=== PATIENT | female | born 1995 | race Two or more races ===

== ENCOUNTER 2024-10-01 17:39 | Emergency (ER) | payer BC, SELFPAY ==
--- NOTE | 2024-10-01 17:47 | XR_ITS ---
Examination: CT abdomen and pelvis without contrast. Coronal 3-D reconstructions. Sagittal 2-D reconstructions. Date and time of exam:October 01, 2024 1801 hrs. Indications: Onset severe upper abdominal pain today CTDI: vol (mGy): 27.8 DLP: (mGycm): 1648 Technique: Axial images of the abdomen have been obtained, 3 mm slice thickness Intravenous contrast material has not been administered. Low dose protocols were performed. One or more of the following dose reduction techniques were used; automated exposure control, adjustment of the mA and/or KV according to patient size, use of iterative reconstruction technique. Findings: Liver is irregular in contour with fatty infiltration and there is moderate hepatomegaly Portacaval stent No definite gallstones No pancreatic mass Mild splenomegaly Severe right renal parenchymal scar formation, no hydronephrosis Aorta normal size Normal appendix No bowel obstruction No ascites Contracted urinary bladder No pelvic mass Impression: Cirrhosis Portacaval stent Mild splenomegaly Severe right renal parenchymal scar formation, no hydronephrosis Normal appendix No bowel obstruction Recommend hepatobiliary sonography follow-up
[2024-10-01 18:10] LABS: Basophils % (Auto) 1 % (0-2.5); Eosinophils # (Auto) 0.1 Thou/mm3 (0.0-0.5); Eosinophils % (Auto) 1 % (0-10); Hematocrit 37.2 % (36.0-46.0); Hemoglobin 12.5 g/dL (12.0-16.0); Immature Granulocytes % (Auto) 0 % (0-0); Immature Granulocytes Auto 0.01 Thou/mm3 (0.00-0.00); Lymphocytes # (Auto) 1.8 Thou/mm3 (1.0-4.8); Lymphocytes % (Auto) 21 % (10-50); Mean Corpuscular HGB Conc 33.6 g/dl (31.0-37.0); Mean Corpuscular Hemoglobin 28.8 pg (25.0-35.0); Mean Corpuscular Volume 86 fL (80-100); Monocytes # (Auto) 0.6 Thou/mm3 (0.0-0.8); Monocytes % (Auto) 6 % (0-12); Neutrophils # (Auto) 6.1 Thou/mm3 (1.8-7.7); Neutrophils % (Auto) 71 % (37-80); Nucleated Red Blood Cell % 0 /100 WBC (0); Platelet Count 134 Thou/mm3 (140-440); Red Blood Count 4.34 Miln/mm3 (4.00-5.20); White Blood Count 8.6 Thou/mm3 (3.6-11.0)
[2024-10-01 18:22] VITALS: BP 151/80; PULSE 87; RESP 18; TEMP 36.9; O2SAT 99
[2024-10-01 18:23] LABS: Alanine Aminotransferase 34 U/L (10-49); Albumin, Serum 3.9 gm/dL (3.5-5.0); Albumin/Globulin Ratio 1.4 (1.2-2.2); Alkaline Phosphatase 119 U/L (46-116); Amylase 41 U/L (30-118); Anion Gap 5 (7-16); Aspartate Amino Transferase 64 U/L (0-34); BUN/Creatinine Ratio 16 Ratio (12-20); Bilirubin,Total 1.1 mg/dL (0.3-1.2); Blood Urea Nitrogen 14 mg/dL (9-23); Calcium 9.4 mg/dL (8.3-10.6); Calcium (Corrected) 9.5 mg/dL (8.5-10.1); Carbon Dioxide 26.8 mMol/L (20.0-31.0); Chloride 109 mMol/L (98-107); Creatinine (Component) 0.9 mg/dL (0.6-1.3); Globulin 2.7 gm/dL (2.3-3.5); Glucose 123 mg/dL (74-106); Lipase 50 U/L (12-53); Magnesium 1.9 mg/dL (1.6-2.6); Osmolality,Calculated 282 (275-295); Potassium 4.1 mMol/L (3.4-5.1); Sodium 141 mMol/L (136-145); Total Protein 6.6 gm/dL (5.7-8.2); eGFR > 60 See Note
--- NOTE | 2024-10-01 19:50 | EDNOTE_ITS ---
ED Abdominal Pain RME/HPI General Chief Complaint: Abdominal Pain Stated complaint: UPPER ABD PAIN Time seen by provider: 10/01/24 17:45 Arrival date/time: 10/01/24 17:39 RME / HPI RME / HPI narrative: This section includes all my notes and documentations, including HPI, PE, and ED course. Hoang Chaney MD HPI: 29-year-old female here with a couple hour history of epigastric abdominal pain. Currently, much better. Had nausea at the start. No vomiting. No fever or chills. No urinary symptoms. No other complaints. ROS: Gastrointestinal: negative except as documented in HPI. Genitourinary: negative except as documented in HPI. Musculoskeletal: negative except as documented in HPI. Skin: negative except as documented in HPI. Neurological: negative except as documented in HPI. Physical Exam: General: Alert and oriented. No acute distress. Eyes: Conjunctivae and lids clear. Lungs: No respiratory distress. Abdomen: Soft and nontender. Normal bowel sounds. No distension. No rebound or guarding. Back: No CVA tenderness. Skin: Warm and dry. Neuro: Alert and oriented X 3. I reviewed all diagnostic test results. My review of the abdominal CT report is no acute findings. Blood tests unremarkable. At this point, diagnoses include GERD. Recommended conservative treatment and more outpatient workup. Based on my best medical judgment, made decision no further evaluation or treat ment indicated at this time. Patient understands and agrees to the discharge instructions customized and printed, see below. Discharge instructions from Dr. Chaney: 1. After extensive evaluation, there is no emergency such as appendicitis needing urgent surgery. 2. Your brief upper abdominal pain is possibly due to GERD, see attached handout. On top of your omeprazole, take famotidine 40 mg 2X daily as needed. 3. See a private doctor on 10/03/2024 for recheck and further care. Ask to review all test results and official radiology reports, to make sure you receive all necessary follow-ups and monitoring. To make sure there is no serious intra-abdominal condition, ask for help with more investigation not available here in the ER. Such as EGD or scoping the stomach, colonoscopy or scoping the colon, and referral to see video clerk. 4. Seek immediate medical care with worsening or with any concerns. Hoang Chaney MD Related Data Allergies Allergy/AdvReac Type Severity Reaction Status Date / Time acetaminophen Allergy Swelling Verified 10/01/24 17:42 of Lip/Tongue/Throat ibuprofen Allergy Swelling Verified 10/01/24 17:42 of Lip/Tongue/Throat Penicillins Allergy Swelling Verified 10/01/24 17:42 of Lip/Tongue/Throat Course Quality Measures none Orders Category Date Time Status CT abdomen pelvis wo con Stat Exams 10/01/24 17:47 Completed Amylase Stat Lab 10/01/24 17:55 Completed CBC Stat Lab 10/01/24 17:55 Completed CMP [Comprehensive Metabolic Panel] Stat Lab 10/01/24 17:55 Completed Lipase Stat Lab 10/01/24 17:55 Completed Magnesium Stat Lab 10/01/24 17:55 Completed Vital Signs Vital signs: Vital Signs Temperature 98.5 F 10/01/24 18:22 Pulse Rate 87 10/01/24 18:22 Respiratory Rate 18 10/01/24 18:22 Blood Pressure 151/80 H 10/01/24 18:22 Pulse Oximetry (%) 99 10/01/24 18:22 Oxygen Delivery Method Room Air 10/01/24 18:22 Abdominal Pain MDM Patient data External records reviewed:: [facility] previous records Clinical information provided by:: patient Social determinants that could affect healthcare access:: none Patient has the following chronic illnesses:: Multiple abdominal surgeries How is presenting disease/condition affected by chronic disease/condition?: uneffected by Evaluation data The following diagnostics were reviewed and interpreted by me:: lab results and radiology exam(s) Lab and/or radiology exams considered but not ordered:: None Interpretation Summary: GERD Medications / Prescriptions Medications or Prescriptions considered but not ordered:: None Medication administrations:: None Consultations Consultation(s) initiated? (list below): No Diagnosis Differential diagnosis abdominal pain: abdominal pain, acute appendicitis, calculus of kidney, constipation, diverticulitis, gastroenteritis, pancreatitis and small bowel obstruction Most likely diagnosis given after review of the tests above:: GERD Admission Indicated Admission indicated?: not indicated Explain why admission is indicated or not indicated:: No criteria for admission Admission Request Was there a request for admission?: No Disposition Plan Disposition Plan: Discharge Discharge Attestation Discharge Attestation: The patient and all family members were given an opportunity to ask questions and understood the discharge instructions. Discharge instructions specifically effects, indications for sooner follow up or return to the emergency department, and the expected course of current diagnosis. Patient condition: Stable Discharge Plan Plan Patient Disposition: HOME (Self Care) Prescriptions/Referrals Referrals: Sarah Arias MD [Primary Care Provider] - In 1 week Problem List Clinical Impression: Abdominal pain Patient/Caregiver Discharge Instructions Discharge Activity: activity as tolerated Education Materials: ED Abdominal Pain Unkn Cause Fem, ED GERD (Adult) Additional Instructions: Discharge instructions from Dr. Chaney: 1. After extensive evaluation, there is no emergency such as appendicitis needing urgent surgery. 2. Your brief upper abdominal pain is possibly due to GERD, see attached handout. On top of your omeprazole, take famotidine 40 mg 2X daily as needed. 3. See a private doctor on 10/03/2024 for recheck and further care. Ask to review all test results and official radiology reports, to make sure you receive all necessary follow-ups and monitoring. To make sure there is no serious intra-abdominal condition, ask for help with more investigation not available here in the ER. Such as EGD or scoping the stomach, colonoscopy or scoping the colon, and referral to see video clerk. 4. Seek immediate medical care with worsening or with any concerns. Print Language: [place] Stand Alone Forms: [employer] Award Info., Patient Portal Info Letter
[2024-10-01 19:58] VITALS: BP 136/74; PULSE 78; RESP 18; TEMP 37.1; O2SAT 99
== END 2024-10-01 19:58 | disposition home or self-care (01) ==
PROVIDERS: Emergency Provider Emergency Medicine; PCP Family Medicine
DX: K21.9 Gastro-esophageal reflux disease without esophagitis (principal)
CPT/HCPCS: 36415; 74176; 80053; 82150; 83690; 83735; 85025; 99284

== ENCOUNTER 2025-03-20 21:17 | Emergency (ER) | payer BC, SELFPAY ==
[2025-03-20 21:17] VITALS: BMI 61.8
[2025-03-20 21:41] VITALS: BP 135/69; PULSE 73; RESP 17; TEMP 36.8; O2SAT 98
--- NOTE | 2025-03-20 21:43 | PD.EDABDPN ---
ED Abdominal Pain RME/HPI General Chief Complaint: Abdominal Pain Stated complaint: UPPER ABDOMINAL PAIN Time seen by provider: 03/20/25 21:43 Arrival date/time: 03/20/25 21:17 RME / HPI RME / HPI narrative: This section includes all my notes and documentations, including HPI, PE, and ED course. Hoang Chaney MD HPI: 30 y/o female with SHx of Gastric Bypass presents to ED c/o epigastric pain, nausea, and vomiting x 6 hours. No other complaints. ROS: All negative except as documented in HPI. Physical Exam: General: Alert and oriented. No acute distress when remaining still. Eyes: Conjunctivae and lids clear. ENT: No nasal congestion. Neck: Supple. Heart: RRR. Lungs: No respiratory distress. Good air movement. No rhonchi, wheezing, rales. Abdomen: Soft with RUQ tenderness. Normal bowel sounds. No distension. No rebound or guarding. Back: No CVA tenderness. Skin: Warm and dry. Neuro: Alert and oriented X 3. I reviewed all diagnostic test results. My review of the Gall Bladder US report is Cholelithiasis, no definite cholecystitis. No common bile duct stones. Mild hepatomegaly. Blood tests remarkable for LFT elevation. At this point, diagnoses include gallstones. Treatment here included Pepcid, Zofran, Protonix. Significant improvement noted. Recommended more outpatient care. Based on my best medical judgment, made decision no further evaluation or treatment indicated at this time. Patient understands and agrees to the discharge instructions customized and printed, see below. Discharge Instructions from Dr. Chaney: 1. After evaluation, your symptoms are due to gallstone(s).? You need gallbladder to help digest fatty foods. 2. So to prevent future attacks, avoid all fatty and oily and greasy and buttery and dairy foods.? This usually means take out and fast food restaurants. 3. Zofran for nausea/vomiting.? Tylenol with codeine for severe pain.?? 4. See a private doctor on 01/19/2025 for recheck and further care. Ask to review all test results and official radiology reports, to make sure you receive all necessary follow-ups and monitoring. Ask for help seeing a general surgeon to discuss elective surgery. You may need more investigation, such as MRCP or HIDA scan. 5. Seek immediate medical care with intolerable pain, fever, or with any concerns. Hoang Chaney MD Related Data Previous Rx's ?Medication ?Instructions ?Recorded acetaminophen 300 mg-codeine 30 mg 2 tab PO Q8H PRN pain #20 tabs 03/20/25 tablet ondansetron 4 mg disintegrating 4 mg PO TID PRN nausea and 03/20/25 tablet vomiting 30 days #10 tabs Allergies Allergy/AdvReac Type Severity Reaction Status Date / Time acetaminophen Allergy Swelling Verified 10/01/24 17:42 of Lip/Tongue/Throat ibuprofen Allergy Swelling Verified 10/01/24 17:42 of Lip/Tongue/Throat Penicillins Allergy Swelling Verified 10/01/24 17:42 of Lip/Tongue/Throat Review of Systems Review of Systems Systems Reviewed: All systems reviewed, normal except as documented Past Medical History Surgical History SURGICAL: Positive Gastric Bypass Surgery Social History SMOKING STATUS: Never smoker ED Exam Narrative Physical exam: Refer to HPI above Course Quality Measures none Orders Category Date Time Status gall bladder Stat Exams 03/20/25 21:44 Completed Amylase Stat Lab 03/20/25 21:47 Completed Bilirubin,Direct Stat Lab 03/20/25 21:47 Completed CBC Stat Lab 03/20/25 21:47 Completed CMP [Comprehensive Metabolic Panel] Stat Lab 03/20/25 21:47 Completed Lipase Stat Lab 03/20/25 21:47 Completed Magnesium Stat Lab 03/20/25 21:47 Completed Famotidine [Pepcid] Med 03/20/25 21:43 Discontinued 40 mg PO X1 ONE Ondansetron Odt [Zofran Odt] Med 03/20/25 21:43 Discontinued 4 mg PO X1 ONE Pantoprazole [Protonix] Med 03/20/25 21:43 Discontinued 40 mg PO X1 ONE Vital Signs Vital signs: Vital Signs Temperature 98.2 F 03/20/25 21:41 Pulse Rate 73 03/20/25 21:41 Respiratory Rate 17 03/20/25 21:41 Blood Pressure 135/69 H 03/20/25 21:41 Pulse Oximetry (%) 98 03/20/25 21:41 Oxygen Delivery Method Room Air 03/20/25 21:41 Abdominal Pain MDM MDM Narrative MDM Narrative:: Scribe Attestation: I, Shira Nguyễn, am scribing for and in the presence of Dr. Chaeny. Provider Notation: Although this document has been carefully reviewed, there may still be some phonetic and other typographical errors.? These errors are purely grammatical due to imperfections in the software program and should not be construed in any way to? compromise the substance of the patient's medical care during this visit. 30 y/o female with SHx of Gastric Bypass presents to ED c/o epigastric pain, nausea, and vomiting x 6 hours. Patient data External records reviewed:: [facility] previous records Clinical information provided by:: patient Social determinants that could affect healthcare access:: none Patient has the following chronic illnesses:: None reported How is presenting disease/condition affected by chronic disease/condition?: no chronic disease Evaluation data The following diagnostics were reviewed and interpreted by me:: lab results and radiology exam(s) Lab and/or radiology exams considered but not ordered:: None Interpretation Summary: I reviewed all diagnostic test results. My review of the Gall Bladder US report is Cholelithiasis, no definite cholecystitis. No common bile duct stones. Mild hepatomegaly. Blood tests remarkable for LFT elevation. Medications / Prescriptions Medications or Prescriptions considered but not ordered:: None Medication administrations:: Medication Administration History Discontinued Medications Famotidine (Famotidine 20 Mg Tablet) 40 mg PO X1 ONE Stop: 03/20/25 21:44 Last Admin: 03/20/25 22:28 Dose: 40 mg Documented By: WILLARD Ondansetron HCl (Ondansetron Odt 4 Mg Tabrap) 4 mg PO X1 ONE; Protocol Stop: 03/20/25 21:44 Last Admin: 03/20/25 22:27 Dose: 4 mg Documented By: WILLARD Pantoprazole Sodium (Pantoprazole 40 Mg Tablet) 40 mg PO X1 ONE Stop: 03/20/25 21:44 Last Admin: 03/20/25 22:27 Dose: 40 mg Documented By: WILLARD Pepcid, Zofran, Protonix Consultations Consultation(s) initiated? (list below): No Diagnosis Differential diagnosis abdominal pain: abdominal pain, acute appendicitis, calculus of kidney, constipation, diverticulitis, gastroenteritis, pancreatitis, small bowel obstruction and other (Biliary colic) Most likely diagnosis given after review of the tests above:: Gallstones Admission Indicated Admission indicated?: not indicated Explain why admission is indicated or not indicated:: With significant improvement, there was no indication for admission. Admission Request Was there a request for admission?: No Disposition Plan Disposition Plan: Discharge Discharge Attestation Discharge Attestation: The patient and all family members were given an opportunity to ask questions and understood the discharge instructions. Discharge instructions specifically effects, indications for sooner follow up or return to the emergency department, and the expected course of current diagnosis. Patient condition: Stable Discharge Plan Plan Patient Disposition: HOME (Self Care) Prescriptions/Referrals Prescriptions/Med Rec: New acetaminophen-codeine 300-30 mg tablet 2 tab PO Q8H MDD 6 PRN (Reason: pain) Qty: 20 0RF ondansetron 4 mg tablet,disintegrating 4 mg PO TID PRN (Reason: nausea and vomiting) 30 Days Qty: 10 0RF Referrals: Sarah Arias MD [Primary Care Provider] - In 1 week Problem List Clinical Impression: Gallstones Patient/Caregiver Discharge Instructions Discharge Activity: activity as tolerated Education Materials: ED Gallstones with Biliary Colic Additional Instructions: Discharge Instructions from Dr. Chaney: 1. After evaluation, your symptoms are due to gallstone(s).? You need gallbladder to help digest fatty foods. 2. So to prevent future attacks, avoid all fatty and oily and greasy and buttery and dairy foods.? This usually means take out and fast food restaurants. 3. Zofran for nausea/vomiting.? Tylenol with codeine for severe pain.?? 4. See a private doctor on 01/19/2025 for recheck and further care. Ask to review all test results and official radiology reports, to make sure you receive all necessary follow-ups and monitoring. Ask for help seeing a general surgeon to discuss elective surgery. You may need more investigation, such as MRCP or HIDA scan. 5. Seek immediate medical care with intolerable pain, fever, or with any concerns. Print Language: Martiniquais Stand Alone Forms: [employer] Award Info., Patient Portal Info Letter
--- NOTE | 2025-03-20 21:44 | XR_ITS ---
Examination: Abdomen sonogram, Limited Date and time of exam: March 20, 2025 2155 hours INDICATIONS: Nausea and vomiting today Technique: Real-time nobles scale transabdominal sonographic images of the upper abdomen obtained. Findings: Cholelithiasis, gallbladder wall 0.35 cm without definite edema Common bile duct 0.4 cm no stones Pancreatic head 3.5 cm Liver 17 cm partial visualization shadowing which may represent a portacaval shunt Normal hepatopedal portal venous flow Patent IVC IMPRESSION: Cholelithiasis, no definite cholecystitis No common bile duct stones Mild hepatomegaly
[2025-03-20 22:03] LABS: Basophils % (Auto) 0 % (0-2.5); Eosinophils % (Auto) 0 % (0-10); Hematocrit 38.4 % (36.0-46.0); Hemoglobin 13.3 g/dL (12.0-16.0); Immature Granulocytes % (Auto) 0 % (0-0); Immature Granulocytes Auto 0.02 Thou/mm3 (0.00-0.00); Lymphocytes % (Auto) 11 % (10-50); Mean Corpuscular HGB Conc 34.6 g/dl (31.0-37.0); Mean Corpuscular Hemoglobin 30.8 pg (25.0-35.0); Mean Corpuscular Volume 89 fL (80-100); Monocytes # (Auto) 0.6 Thou/mm3 (0.0-0.8); Monocytes % (Auto) 6 % (0-12); Neutrophils # (Auto) 7.5 Thou/mm3 (1.8-7.7); Neutrophils % (Auto) 82 % (37-80); Nucleated Red Blood Cell % 0 /100 WBC (0); Platelet Count 167 Thou/mm3 (140-440); Red Blood Count 4.32 Miln/mm3 (4.00-5.20); White Blood Count 9.1 Thou/mm3 (3.6-11.0)
[2025-03-20 22:19] LABS: Alanine Aminotransferase 119 U/L (10-49); Albumin, Serum 3.9 gm/dL (3.5-5.0); Albumin/Globulin Ratio 1.2 (1.2-2.2); Alkaline Phosphatase 141 U/L (46-116); Amylase 58 U/L (30-118); Anion Gap 8 (7-16); Aspartate Amino Transferase 229 U/L (0-34); BUN/Creatinine Ratio 13 Ratio (12-20); Bilirubin,Direct 0.6 mg/dL (0.0-0.3); Bilirubin,Total 1.4 mg/dL (0.3-1.2); Blood Urea Nitrogen 13 mg/dL (9-23); Calcium 8.5 mg/dL (8.3-10.6); Calcium (Corrected) 8.6 mg/dL (8.5-10.1); Carbon Dioxide 27.5 mMol/L (20.0-31.0); Chloride 109 mMol/L (98-107); Globulin 3.2 gm/dL (2.3-3.5); Glucose 138 mg/dL (74-106); Lipase 53 U/L (12-53); Magnesium 1.9 mg/dL (1.6-2.6); Osmolality,Calculated 288 (275-295); Potassium 4.2 mMol/L (3.4-5.1); Sodium 144 mMol/L (136-145); Total Protein 7.1 gm/dL (5.7-8.2); eGFR > 60 See Note
[2025-03-20] MEDS: PANTOPRAZOLE 40 MG TABLET PO (22:27)
[2025-03-20] MEDS: ONDANSETRON ODT 4 MG TABRAP PO (22:27)
[2025-03-20] MEDS: FAMOTIDINE 20 MG TABLET 40 MG PO (22:28)
== END 2025-03-20 23:23 | disposition home or self-care (01) ==
PROVIDERS: Emergency Provider Emergency Medicine; PCP Family Medicine
DX: K80.20 Calculus of gallbladder without cholecystitis without obstruction (principal); R16.0 Hepatomegaly, not elsewhere classified; R79.89 Other specified abnormal findings of blood chemistry
CPT/HCPCS: 36415; 76705; 80053; 82150; 82248; 83690; 83735; 85025; 99284; Q0162; A9270

== ENCOUNTER 2025-10-05 15:16 | Inpatient (IN) | payer BC, SELFPAY ==
[2025-10-05 15:43] VITALS: BP 116/74; PULSE 109; RESP 24; TEMP 36.9; O2SAT 95
[2025-10-05 15:44] VITALS: PULSE 88
--- NOTE | 2025-10-05 15:44 | EKG_ITS ---
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
--- NOTE | 2025-10-05 15:44 | XR_ITS ---
EXAMINATION: AP chest single view TECHNIQUE: AP portable semiupright chest single view Date and time: October 05, 2025, 1732 hours, comparison February 22, 2008 INDICATION: Chest pain shortness of breath beginning 2 days ago. FINDINGS: Minimal prominence left ventricle No pneumonia or pulmonary edema Mild to moderate elevation right hemidiaphragm Intact osseous structures IMPRESSION: No pneumonia or pulmonary edema
--- NOTE | 2025-10-05 15:45 | PD.EDRME ---
Rapid Medical Screening Exam RME Arrival date/time: 10/05/25 15:16 30-year-old female reports he is a [employer] presents to the emergency department today for complaints of generalized weakness Chief Complaint: Dizziness Vital signs: Vital Signs Temperature 98.5 F 10/05/25 15:43 Pulse Rate 109 H 10/05/25 15:43 Respiratory Rate 24 H 10/05/25 15:43 Blood Pressure 116/74 10/05/25 15:43 Pulse Oximetry (%) 95 10/05/25 15:43 Oxygen Delivery Method Room Air 10/05/25 15:43 Vital signs reviewed by provider: Yes Exam: On exam patient has mild tachypnea and appears to be a bit pale blood pressure normal Clinical Impression: Labs, imaging, EKG obtained patient be seen in the main ER for further evaluation
[2025-10-05 16:20] LABS: Collection Type, Urine Clean Catch
[2025-10-05 16:30] LABS: Basophils # (Auto) 0.0 Thou/mm3 (0.0-0.2); Basophils % (Auto) 0 % (0-2.5); Eosinophils # (Auto) 0.0 Thou/mm3 (0.0-0.5); Eosinophils % (Auto) 0 % (0-10); Hematocrit 32.4 % (36.0-46.0); Hemoglobin 10.5 g/dL (12.0-16.0); Immature Granulocytes Auto 0.05 Thou/mm3 (0.00-0.00); Lymphocytes # (Auto) 0.3 Thou/mm3 (1.0-4.8); Lymphocytes % (Auto) 5 % (10-50); Mean Corpuscular HGB Conc 32.4 g/dl (31.0-37.0); Mean Corpuscular Hemoglobin 28.4 pg (25.0-35.0); Mean Corpuscular Volume 88 fL (80-100); Monocytes # (Auto) 0.0 Thou/mm3 (0.0-0.8); Monocytes % (Auto) 0 % (0-12); Neutrophils # (Auto) 5.2 Thou/mm3 (1.8-7.7); Neutrophils % (Auto) 94 % (37-80); Nucleated Red Blood Cell # 0.00 Thou/mm3 (0.00-0.00); Nucleated Red Blood Cell % 0 /100 WBC (0); Platelet Count 338 Thou/mm3 (140-440); RDW Standard Deviation 40.8 fL (36.4-46.3); Red Blood Count 3.70 Miln/mm3 (4.00-5.20); White Blood Count 5.6 Thou/mm3 (3.6-11.0)
[2025-10-05 16:35] LABS: HCG Qualitative,Urine Negative
[2025-10-05 16:43] VITALS: BP 107/62; PULSE 114; RESP 20; TEMP 38.1; O2SAT 98
[2025-10-05 16:48] LABS: B-Type Natriuretic Peptide 59 pg/mL (0-100)
[2025-10-05 16:49] LABS: Bacteria,Urine 4+; Bilirubin,Urine Negative (Negative); Blood,Urine 3+ (Negative); Clarity,Urine Turbid (Clear/Hazy); Color,Urine Yellow (Lt Yel-Yel); Glucose, Urine Negative (Negative); Hyaline Casts,Urine < 1 /hpf (0-1); Ketones,Urine Negative (Negative); Leukocyte Esterase,Urine Positive (Negative); Nitrite,Urine Positive (Negative); PH,Urine 5.5 (5.0-7.0); Protein,Urine 1+ (Neg - Trace); RBC,Urine 132 /hpf (0-3); Specific Gravity,Urine 1.023 (1.001-1.035); Squamous Epithelial Cell,Urine 8 /hpf (0-5); Urobilinogen,Urine 4.0 mg/dL (0.0-1.0); WBC,Urine 264 /hpf (0-5)
[2025-10-05 16:50] LABS: Culture Indicated,Urine Yes
[2025-10-05 16:51] LABS: INR 1.4 (0.9-1.3); Partial Thromboplastin Time 29.5 Seconds (22.0-36.0); Prothrombin Time 14.6 Seconds (9.0-12.2)
[2025-10-05 16:52] LABS: Alanine Aminotransferase 10 U/L (10-49); Albumin, Serum 3.3 gm/dL (3.5-5.0); Albumin/Globulin Ratio 0.8 (1.2-2.2); Alkaline Phosphatase 148 U/L (46-116); Anion Gap 13 (7-16); Aspartate Amino Transferase 17 U/L (0-34); BUN/Creatinine Ratio 12 Ratio (12-20); Bilirubin,Total 1.2 mg/dL (0.3-1.2); Blood Urea Nitrogen 13 mg/dL (9-23); Calcium 8.1 mg/dL (8.3-10.6); Calcium (Corrected) 8.7 mg/dL (8.5-10.1); Carbon Dioxide 20.7 mMol/L (20.0-31.0); Chloride 102 mMol/L (98-107); Creatinine (Component) 1.1 mg/dL (0.6-1.3); Globulin 4.0 gm/dL (2.3-3.5); Glucose 114 mg/dL (74-106); Magnesium 1.6 mg/dL (1.6-2.6); Osmolality,Calculated 273 (275-295); Potassium 3.3 mMol/L (3.4-5.1); Sodium 136 mMol/L (136-145); Total Protein 7.3 gm/dL (5.7-8.2); Troponin I < 0.002 ng/mL (0.0-0.045); eGFR > 60 See Note
[2025-10-05 17:17] LABS: Amphetamine/Methamp Scrn,U Negative (Negative); Barbiturate Screen,Urine Negative (Negative); Benzodiazepines Screen,Urine Negative (Negative); Benzoylecgonine Screen, Ur Negative (Negative); Fentanyl Screen,Urine Negative (Negative); Opiate Screen,Urine Negative (Negative); THC Screen,Urine Negative (Negative)
[2025-10-05 17:20] LABS: Lactate (Lactic Acid) 3.7 mMol/L (0.4-2.0)
[2025-10-05 17:50] LABS: Lipase 25 U/L (12-53); Procalcitonin 22.45 ng/ml (0.0-0.49)
[2025-10-05 18:00] VITALS: BP 118/78; PULSE 98; RESP 18; TEMP 37.7; O2SAT 98
--- NOTE | 2025-10-05 18:20 | XR_ITS ---
Examination: CT abdomen and pelvis without contrast. Coronal 3-D reconstructions. Sagittal 2-D reconstructions. Date and time of exam: October 05, 2025, 1859 hours, comparison October 01, 2024 INDICATIONS: Flank pain urinary tract infections, fever, generalized abdominal pain today CTDI: vol (mGy): 24.6 DLP: (mGycm): 1601 Technique: Axial images of the abdomen have been obtained, 3 mm slice thickness Intravenous contrast material has not been administered. Low dose protocols were performed. One or more of the following dose reduction techniques were used; automated exposure control, adjustment of the mA and/or KV according to patient size, use of iterative reconstruction technique. Findings: Cirrhosis, liver irregular in contour Portosystemic stent Hepatomegaly 20 cm A large tumor mass upper pole right kidney, 12.5 cm Severe scarring left kidney Nodular thickening right adrenal gland No pancreatic mass Mild splenomegaly Aorta normal size No bowel obstruction No pericecal inflammatory change No diverticulitis No uterine mass Contracted urinary bladder IMPRESSION: Large mass upper pole right kidney most consistent with tumor mass Recommend MRI abdomen pelvis follow-up pre and postcontrast
[2025-10-05] MEDS: RINGERS LACTATED 1000 ML 1,000 ML IV (18:34)
[2025-10-05] MEDS: ONDANSETRON INJ 2 MG/ML INJ 2 ML 4 MG IVP (18:35)
[2025-10-05] MEDS: MORPHINE SULF INJ 4 MG/ML VIAL IV (18:35)
[2025-10-05] MEDS: MethylPREDNISolone SOD SUCC 62.5 MG/ML 2ML VIAL 125 MG IVP (18:35)
[2025-10-05] MEDS: POTASSIUM CHLORIDE 10% 20 MEQ/15 ML UDC 40 MEQ PO (18:35)
--- NOTE | 2025-10-05 18:37 | EDNOTE_ITS ---
ED Fever RME/HPI General Chief Complaint: Dizziness Stated Complaint: DIZZY, DYSPNEA Time Seen by Provider: 10/05/25 18:09 Arrival date/time: 10/05/25 15:16 RME / HPI RME / HPI Narrative: 10/05/25 15:16 30-year-old female reports he is a Amish presents to the emergency department today for complaints of generalized weakness See MDM for Dr. Chaney's HPI Documentation. Exam: On exam patient has mild tachypnea and appears to be a bit pale blood pressure normal Impression: Labs, imaging, EKG obtained patient be seen in the main ER for further evaluation Related Data Home Medications ?Medication ?Instructions ?Recorded ?Confirmed albuterol 90 mcg/actuation aerosol 180 mcg inhalation BID PRN sob 10/06/25 10/06/25 inhaler apixaban 5 mg tablet (Eliquis) 5 mg PO BID DVT in port al vein 10/06/25 10/06/25 omeprazole 40 mg capsule,delayed 40 mg PO DAILY 10/06/25 release topiramate 50 mg tablet 50 mg PO BID appetite suppre arielle 10/06/25 10/06/25 Previous Rx's ?Medication ?Instructions ?Recorded acetaminophen 300 mg-codeine 30 mg 2 tab PO Q8H PRN pa in #20 tabs 03/20/25 tablet Allergies Allergy/AdvReac Type Severity Reaction Status Date / Time acetaminophen Allergy Swelling Verified 10/05/25 15:20 of Lip/Tongue/Throat ibuprofen Allergy Swelling Verified 10/05/25 15:20 of Lip/Tongue/Throat Penicillins Allergy Swelling Verified 10/05/25 15:20 of Lip/Tongue/Throat Review of Systems Review of Systems Systems Reviewed: All systems reviewed, normal except as documented Past Medical History Surgical History SURGICAL: Positive Gastric Bypass Surgery Physical Exam Narrative Physical exam: See MDM for Dr. Chaney's Physical Exam Documentation. ED Exam Narrative Physical exam: See MDM for Dr. Chaney's Physical Exam Documentation. Course Quality Measures none Orders Category Date Time Status Admit to Inpatient Status Routine Admission 10/05/25 21:52 Active Patient Condition Routine Admission 10/05/25 21:52 Ordered Nuclear Control Room Operator NOW Care 10/05/25 15:44 Active Cooling Measures NEEDED Care 10/05/25 22:05 Active EKG (ED ONLY) *Do not use* NOW Care 10/05/25 15:44 Completed MRI Screening NOW Care 10/05/25 22:02 Active MRI Screening NOW Care 10/05/25 22:28 Active Notify provider NEEDED Care 10/05/25 21:52 Active Saline [Insert IV] NOW Care 10/05/25 18:12 Active Sequential Compression Device QSHIFT Care 10/05/25 21:58 Active Diet Regular Diet 10/06/[address] abdomen pelvis wo con Stat Exams 10/05/25 18:20 Completed EKG (ED Only) Stat Exams 10/05/25 15:44 Draft MR abdomen wo/w con Routine Exams 10/05/25 22:02 Ordered MR abdomen wo/w con Routine Exams 10/05/25 22:02 Stop Req MR pelvis wo/w con Routine Exams 10/05/25 22:28 Ordered MR pelvis wo/w con Routine Exams 10/05/25 22:28 Stop Req MR pelvis wo/w con Stat Exams 10/05/25 Stop Req XR chest 1V portable Stat Exams 10/05/25 15:44 Completed B-Type Natriuretic Peptide Stat Lab 10/05/25 15:54 Completed Blood Culture (Lab) Stat Lab 10/05/25 17:20 Received CBC AM DRAW Lab 10/06/25 05:00 Ordered CBC AM DRAW Lab 10/07/25 05:00 Ordered CBC AM DRAW Lab 10/08/25 05:00 Ordered CBC Stat Lab 10/05/25 15:54 Completed Comprehensive Metabolic Panel AM DRAW Lab 10/06/25 05:00 Ordered Comprehensive Metabolic Panel AM DRAW Lab 10/07/25 05:00 Ordered Comprehensive Metabolic Panel AM DRAW Lab 10/08/25 05:00 Ordered Comprehensive Metabolic Panel Stat Lab 10/05/25 15:54 Completed Copper* Routine Lab 10/05/25 Ordered Drug Screen,Urine Stat Lab 10/05/25 15:44 Completed HCG Qualitative,Urine Stat Lab 10/05/25 16:11 Completed Iron Panel Routine Lab 10/05/25 21:23 Completed Lactate (Lactic Acid) Routine Lab 10/05/25 23:08 Completed Lactic Acid [Lactate (Lactic Acid)] Stat Lab 10/05/25 17:10 Completed Lactic Acid, 3 HR Stat Lab 10/05/25 21:23 Completed Lipase Stat Lab 10/05/25 17:10 Completed Magnesium Stat Lab 10/05/25 15:54 Completed Partial Thromboplastin Time Stat Lab 10/05/25 15:54 Completed Procalcitonin Stat Lab 10/05/25 17:10 Completed Prothrombin Time with INR Stat Lab 10/05/25 15:54 Completed Thyroid Stimulating Hormone AM DRAW Lab 10/06/25 05:00 Ordered Troponin I Stat Lab 10/05/25 15:54 Completed Urinalysis, C/S if Indicated Stat Lab 10/05/25 16:11 Completed Urine Culture Stat Lab 10/05/25 16:11 Received Vitamin B12 Routine Lab 10/05/25 23:08 Completed Vitamin D 25 Hydroxy Total Routine Lab 10/05/25 23:08 Completed Zinc, Plasma* Routine Lab 10/05/25 Ordered Acetaminophen Tab [Tylenol ES Tab] Med 10/05/25 18:13 Discontinued 1,000 mg PO X1 ONE Apixaban [Eliquis] Med 10/06/25 09:00 Active 5 mg PO BID Ketorolac Inj [Toradol Inj] Med 10/05/25 18:30 Discontinued 30 mg IVP X1 ONE MethylPREDNISolone.* [SoluMEDROL Inj] Med 10/05/25 18:19 Discontinued 125 mg IVP X1 ONE Morphine* Inj Med 10/05/25 18:20 Discontinued 4 mg IV X1 ONE Ondansetron Inj [Zofran Inj] Med 10/05/25 21:52 Active 4 mg IVP Q6H PRN Ondansetron Inj [Zofran Inj] Med 10/05/25 18:13 Discontinued 4 mg IVP X1 ONE POTASSIUM CHL 10% Liq 15 ML Med 10/05/25 18:13 Discontinued 40 meq PO X1 ONE Potassium Chloride [K-Dur] Med 10/05/25 22:16 Discontinued 40 meq PO X1 ONE Ringers Lactated 1000 ml [Lactated Ringers] 1,000 ml Med 10/05/25 18:13 Discontinued IV 1,000 mls/hr Ringers Lactated 1000 ml [Lactated Ringers] 4,000 ml Med 10/05/25 20:50 Discontinued IV 999 mls/hr cefTRIAXone [Rocephin] 2 gm Med 10/05/25 22:05 Discontinued SODIUM CHLORIDE 0.9% (Popper) [Ns 0.9% (P)] 50 ml IV QDAY cefTRIAXone [Rocephin] 2 gm Med 10/06/25 09:00 Pending SODIUM CHLORIDE 0.9% (Popper) [Ns 0.9% (P)] 50 ml IV QDAY cefTRIAXone [Rocephin] 2 gm Med 10/05/25 18:21 Discontinued Sodium Chloride 0.9% (Pop) [NS 0.9% mini bag] 100 ml IV X1 cefTRIAXone/D5w 1gm IV premix [Rocephin/D5w 1gm IV Med 10/05/25 18:13 Discontinued premix] 50 ml IV X1 Code Status Routine Oth 10/05/25 21:52 Ordered Vital Signs Vital signs: Vital Signs Temperature 98.5 F 10/05/25 15:43 Pulse Rate 109 H 10/05/25 15:43 Respiratory Rate 24 H 10/05/25 15:43 Blood Pressure 116/74 10/05/25 15:43 Pulse Oximetry (%) 95 10/05/25 15:43 Oxygen Delivery Method Room Air 10/05/25 15:43 Fever MDM Narrative MDM Narrative:: This section includes all my notes and documentations, including HPI, PE, and ED course. Hoang Chaney MD HPI: 30 y/o female here with several days of right flank pain and dysuria and fever and chills and bodyaches and malaise. No other complaints. ROS: All negative except as documented in HPI. Physical Exam: General: Alert and oriented. In obvious pain. Fever noted. Eyes: Conjunctivae and lids clear. ENT: No nasal congestion. Neck: Supple. Heart: RRR. Lungs: No respiratory distress. Good air movement. No rhonchi, wheezing, rales. Abdomen: Soft and nontender. Normal bowel sounds. No distension. No rebound or guarding. Back: No CVA tenderness. Skin: Warm and dry. Neuro: Alert and oriented X 3. I reviewed all diagnostic test results: My interpretation of the EKG is sinus tachycardia with nonspecific ST-T changes. My interpretation of the chest x-ray is: NAD. My review of the Abdomen/Pelvis CT report is large mass upper pole right kidney. Blood tests remarkable for K 3.3, lactic acid 3.7, and procalcitonin 22.45. UA showed positive nitrite, positive leukocyte esterase, 132 RBC, 2064 WBC, and 4+ bacteria. At this point, diagnoses include: Sepsis UTI Treatment here included: IVF Toradol 30 mg IV Rocephin 2 G IV SoluMedrol 125 mg IV (due to history of Tylenol/Ibuprofen and PCN allergy) Morphine 4 mg IV Zofran 4 mg IV Oral KCl 40 mEq No significant improvement noted. I discussed the case with our hospitalist. About the presentation and exam and diagnostics and treatments here. And need of further care in the hospital. Will accept the patient. Hoang Chaney MD Patient data External records reviewed:: [facility] previous records (Reviewed prior ED records from 03/20/25. Patient was seen for Gallstones.) Clinical information provided by:: patient Social determinants that could affect healthcare access:: none Patient has the following chronic illnesses:: None reported How is presenting disease/condition affected by chronic disease/condition?: no chronic disease Evaluation data The following diagnostics were reviewed and interpreted by me:: lab results, radiology exam(s) and EKG tracing(s) Lab and/or radiology exams considered but not ordered:: None Interpretation Summary: I reviewed all diagnostic test results: My interpretation of the EKG is sinus tachycardia with nonspecific ST-T changes. My interpretation of the chest x-ray is: NAD. My review of the Abdomen/Pelvis CT report is large mass upper pole right kidney. Blood tests remarkable for K 3.3, lactic acid 3.7, and procalcitonin 22.45. UA showed positive nitrite, positive leukocyte esterase, 132 RBC, 2064 WBC, and 4+ bacteria. Medications / Prescriptions Medications or Prescriptions considered but not ordered:: None Medication administrations:: Medication Administration History Apixaban (Apixaban 2.5 Mg Tablet) 5 mg PO BID CHANG Stop: 10/27/25 08:59 Ceftriaxone Sodium 2 gm/ (Sodium Chloride) 50 mls @ 100 mls/hr IV QDAY CHANG Stop: 10/13/25 08:59 Ondansetron HCl (Ondansetron Inj 2 Mg/Ml Inj 2 Ml) 4 mg IVP Q6H PRN; Protocol PRN Reason: NAUSEA OR VOMITING Stop: 11/04/25 21:51 Pharmacy Consult (Pharmacy To Consult Pneumovacc) 1 each XX PRN PRN PRN Reason: CONSULT Stop: 11/05/25 01:59 Discontinued Medications Acetaminophen (Acetaminophen 500 Mg Tablet) 1,000 mg PO X1 ONE Stop: 10/05/25 18:14 Last Admin: 10/05/25 19:30 Dose: Not Given Documented By: ASIYA Non-Admin Reason: allergy Lactated Ringer's (Lactated Ringers) 1,000 mls @ 1,000 mls/hr IV .Q1H ONE Stop: 10/05/25 19:12 Last Infusion: 10/05/25 19:34 Dose: Infused Documented By: Admin: 10/05/25 18:34 Dose: 1,000 mls/hr Documented By: PHILLIP Ceftriaxone Sodium/Dextrose (Rocephin/D5w 1gm Iv Premix) 50 mls @ 100 mls/hr IV X1 ONE Stop: 10/05/25 18:42 Ceftriaxone Sodium 2 gm/ (Sodium Chloride) 100 mls @ 200 mls/hr IV X1 ONE Stop: 10/05/25 18:50 Last Infusion: 10/05/25 19:15 Dose: Infused Documented By: Admin: 10/05/25 18:38 Dose: 200 mls/hr Documented By: PHILLIP Lactated Ringer's (Lactated Ringers) 4,000 mls @ 999 mls/hr IV .Q4H1M ONE Stop: 10/06/25 00:50 Last Admin: 10/05/25 22:40 Dose: 999 mls/hr Documented By: ASIYA Ceftriaxone Sodium 2 gm/ (Sodium Chloride) 50 mls @ 100 mls/hr IV QDAY CHANG Stop: 10/12/25 22:04 Influenza Virus Vaccine Quadrival (Influenza Virus 0.5 Ml Syringe ) 0.5 ml IMi .ONCE ONE Stop: 10/06/25 02:01 Ketorolac Tromethamine (Ketorolac Inj 30 Mg/Ml Vial) 30 mg IVP X1 ONE Stop: 10/05/25 18:31 Last Admin: 10/05/25 21:21 Dose: 30 mg Documented By: ASIYA Methylprednisolone Sodium Succinate (Methylprednisolone Sod Succ 62.5 Mg/Ml 2ml Vial) 125 mg IVP X1 ONE Stop: 10/05/25 18:20 Last Admin: 10/05/25 18:35 Dose: 125 mg Documented By: PHILLIP Morphine Sulfate (Morphine Sulf Inj 4 Mg/Ml Vial) 4 mg IV X1 ONE Stop: 10/05/25 18:21 Last Admin: 10/05/25 18:35 Dose: 4 mg Documented By: PHILLIP Ondansetron HCl (Ondansetron Inj 2 Mg/Ml Inj 2 Ml) 4 mg IVP X1 ONE; Protocol Stop: 10/05/25 18:14 Last Admin: 10/05/25 18:35 Dose: 4 mg Documented By: PHILLIP Potassium Chloride (Potassium Chloride 10% 20 Meq/15 Ml Udc) 40 meq PO X1 ONE Stop: 10/05/25 18:14 Last Admin: 10/05/25 18:35 Dose: 40 meq Documented By: PHILLIP Potassium Chloride (Potassium Chloride 20 Meq Tabcr) 40 meq PO X1 ONE Stop: 10/05/25 22:17 Treatment here from me included: IVF Toradol 30 mg IV Rocephin 2 G IV SoluMedrol 125 mg IV (due to history of Tylenol/Ibuprofen and PCN allergy) Morphine 4 mg IV Zofran 4 mg IV Oral KCl 40 mEq Consultations Consultation(s) initiated? (list below): Yes Consultation #1 (Physician, Specialty, Details): I discussed the case with our hospitalist. About the presentation and exam and diagnostics and treatments here. And need of further care in the hospital. Will accept the patient. Time: 19:58 Diagnosis Fever Differential Diagnosis: fever of unknown origin, gastroenteritis, community acquired pneumonia, pyelonephritis, viral infection and sepsis Most likely diagnosis given after review of the tests above:: Sepsis UTI Admission Indicated Admission indicated?: indicated Explain why admission is indicated or not indicated:: Sepsis UTI Admission Request Was there a request for admission?: Yes Admission Attestation Admission request attestation: Discussed case with Hospitalist service regarding admission. Discussed patients ED course, exam findings, labs, and radiology results. Agreed to accept the patient for admission. Disposition Plan Disposition Plan: Admit Discharge Plan Plan Patient Disposition: Admit Acute Care w/in Hospital Problem List Clinical Impression: Sepsis, UTI (urinary tract infection)
[2025-10-05 20:18] LABS: Reflex Lactate? Y
[2025-10-05 20:29] VITALS: BP 113/82; PULSE 108; RESP 14; TEMP 38.3; O2SAT 98
[2025-10-05] MEDS: KETOROLAC INJ 30 MG/ML VIAL IVP (21:21)
[2025-10-05 21:33] LABS: Lactic Acid, 3 HR 3.7 mMol/L (0.4-2.0)
--- NOTE | 2025-10-05 22:08 | PD.RESHP ---
Documentation for date of: 10/05/25 HPI History of Present Illness History of present illness: 30-year-old female who is Religion with a past medical history of obesity status post gastric bypass in 2023 and subsequently found to have portal vein thrombosis and status post portosystemic stent on Eliquis, large right-sided renal mass who presents to the ED for general malaise, lightheadedness, and dizziness. States that symptoms have been present for a long time , approximately months with associated foul-smelling and cloudy urine, fever, chills, and nausea but no vomiting. States she has back pain but radiates laterally down her lower extremities. Denies any diarrhea, constipation, sore throat, shortness of breath, cough. 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 In ED, vital signs significant for pulse of 109, respiratory rate of 24, and fever of 100.6 ?F. Hemoglobin 10.5, MCV 88, no leukocytosis. CHEM panel showed K 3.3, lactate 3.7, Pro-Kael 22.4, alk phos 148. UA turbid with 3+ blood, nitrate and LE positive, 4+ bacteria. Beta-hCG negative, U tox negative. EKG shows sinus tachycardia with pulse of 111. CT A/P showed cirrhotic appearing liver, portosystemic stent, large right-sided renal mass (12.5 cm), severe scarring of left kidney, nodular thickening of right adrenal gland, mild splenomegaly. Given 1 L LR, Zofran, 40 mEq of K, 4 mg IV morphine, ketorolac 30 mg, methylprednisolone 125 mg, and ceftriaxone 2 g x 1. Admitted for management of UTI with systemic signs/symptoms and further evaluation of right-sided renal mass. PMHx: obesity, portal vein thrombosis, ? MASH Medications: Eliquis 5 mg daily SHx: social drinking, does not smoke or use illicit drugs PSHx: portosystemic stent in 2023, gastric bypass in 2023 Review of Systems Review of Systems Systems Reviewed: All systems reviewed, normal except as documented Exam Vital Signs Temp Pulse Resp BP Pulse Ox O2 Del Method 100.9 F H 108 H 14 113/82 98 Room Air 10/05/25 20:29 10/05/25 20:29 10/05/25 20:29 10/05/25 20:29 10/05/25 20:29 10/05/25 20:29 Narrative Exam General: AOx3, no acute distress, able to speak full sentences HEENT: NC/AT, mucous membranes moist, bilateral sclera anicteric Cardiovascular: tachycardic, regular rhythm, S1/S2 present, no murmurs appreciated Pulmonary: clear to auscultation bilaterally, no rales/rhonchi/wheezes Abdominal: obese, soft, non-tender, non-distended, no rebound/guarding, normal bowel sounds present Musculoskeletal: no CVA tenderness, normal ROM, no peripheral edema Skin: warm to touch, intact, no rashes Neuro: CN II-XII intact, no focal deficits Results: Labs 10/06/25 05:23 10/06/25 05:23 Labs: Short CBC 10/05/25 Range/Units 15:54 WBC 5.6 (3.6-11.0) Thou/mm3 Hgb 10.5 L (12.0-16.0) g/dL Hct 32.4 L (36.0-46.0) % Plt Count 338 (140-440) Thou/mm3 BMP 10/05/25 15:54 Sodium 136 Potassium 3.3 L Chloride 102 Carbon Dioxide 20.7 BUN 13 Creatinine 1.1 Glucose 114 H Calcium 8.1 L Cardiac Enzymes 10/05/25 Range/Units 15:54 Troponin I < 0.002 (0.0-0.045) ng/mL Liver Function 10/05/25 Range/Units 15:54 Total Bilirubin 1.2 (0.3-1.2) mg/dL AST 17 (0-34) U/L ALT 10 (10-49) U/L Alkaline Phosphatase 148 H (46-116) U/L Albumin 3.3 L (3.5-5.0) gm/dL Urine 10/05/25 Range/Units 16:11 Urine Color Yellow (Lt Yel-Yel) Urine Clarity Turbid A (Clear/Hazy) Urine pH 5.5 (5.0-7.0) Ur Specific [place] 1.023 (1.001-1.035) Urine Protein 1+ A (Neg - Trace) Urine Glucose (UA) Negative (Negative) Quality Measures Quality Measures VTE therapy Medications Home Medications and Allergies Home Medications ?Medication ?Instructions ?Recorded ?Confirmed ?Type albuterol 90 mcg/actuation aerosol 180 mcg inhalation BID PRN sob 10/06/25 10/06/25 History inhaler apixaban 5 mg tablet (Eliquis) 5 mg PO BID DVT in portal vein 10/06/25 10/06/25 History omeprazole 40 mg capsule,delayed 40 mg PO DAILY 10/06/25 10/06/25 History release topiramate 50 mg tablet 50 mg PO BID appetite suppresant 10/06/25 10/06/25 History Allergies Allergy/AdvReac Type Severity Reaction Status Date / Time acetaminophen Allergy Swelling Verified 10/05/25 15:20 of Lip/Tongue/Throat ibuprofen Allergy Swelling Verified 10/05/25 15:20 of Lip/Tongue/Throat Penicillins Allergy Swelling Verified 10/05/25 15:20 of Lip/Tongue/Throat Visit Medications Apixaban (Apixaban 2.5 Mg Tablet) 5 mg PO BID CHANG Stop: 10/27/25 08:59 Lactated Ringer's (Lactated Ringers) 4,000 mls @ 999 mls/hr IV .Q4H1M ONE Stop: 10/06/25 00:50 Ceftriaxone Sodium 2 gm/ (Sodium Chloride) 50 mls @ 100 mls/hr IV QDAY CHANG Stop: 10/12/25 22:04 Ondansetron HCl (Ondansetron Inj 2 Mg/Ml Inj 2 Ml) 4 mg IVP Q6H PRN; Protocol PRN Reason: NAUSEA OR VOMITING Stop: 11/04/25 21:51 Discontinued Medications Acetaminophen (Acetaminophen 500 Mg Tablet) 1,000 mg PO X1 ONE Stop: 10/05/25 18:14 Lactated Ringer's (Lactated Ringers) 1,000 mls @ 1,000 mls/hr IV .Q1H ONE Stop: 10/05/25 19:12 Last Infusion: 10/05/25 19:34 Dose: Infused Ceftriaxone Sodium/Dextrose (Rocephin/D5w 1gm Iv Premix) 50 mls @ 100 mls/hr IV X1 ONE Stop: 10/05/25 18:42 Ceftriaxone Sodium 2 gm/ (Sodium Chloride) 100 mls @ 200 mls/hr IV X1 ONE Stop: 10/05/25 18:50 Last Infusion: 10/05/25 19:15 Dose: Infused Ketorolac Tromethamine (Ketorolac Inj 30 Mg/Ml Vial) 30 mg IVP X1 ONE Stop: 10/05/25 18:31 Last Admin: 10/05/25 21:21 Dose: 30 mg Methylprednisolone Sodium Succinate (Methylprednisolone Sod Succ 62.5 Mg/Ml 2ml Vial) 125 mg IVP X1 ONE Stop: 10/05/25 18:20 Last Admin: 10/05/25 18:35 Dose: 125 mg Morphine Sulfate (Morphine Sulf Inj 4 Mg/Ml Vial) 4 mg IV X1 ONE Stop: 10/05/25 18:21 Last Admin: 10/05/25 18:35 Dose: 4 mg Ondansetron HCl (Ondansetron Inj 2 Mg/Ml Inj 2 Ml) 4 mg IVP X1 ONE; Protocol Stop: 10/05/25 18:14 Last Admin: 10/05/25 18:35 Dose: 4 mg Potassium Chloride (Potassium Chloride 10% 20 Meq/15 Ml Udc) 40 meq PO X1 ONE Stop: 10/05/25 18:14 Last Admin: 10/05/25 18:35 Dose: 40 meq Assessment & Plan Plan 30-year-old female who is Religion with a past medical history of obesity status post gastric bypass in 2023 and subsequently found to have portal vein thrombosis and status post portosystemic stent on Eliquis, large right-sided renal mass who is admitted for management of UTI with systemic signs/symptoms and further evaluation of right-sided renal mass. #UTI with systemic signs/symptoms #Lactic acidosis Symptoms present for months per patient with dysuria, foul-smelling and cloudy urine. No CVA tenderness on exam but febrile and tachycardic with elevated lactate and procal seen on labs. UA shows turbid urine with 132 RBC, 264 WBC, nitrite and LE positive with 4+ bacteria. No previous culture results. ? Ceftriaxone (10/05-) ? Continue IV fluid bolus resuscitation ? Follow-up urine and blood cultures ? Follow-up lactate ? Allergic to ibuprofen and Tylenol so cooling measures initiated instead #Right-sided renal mass seen on CT CT shows large mass seen at upper pole of right kidney (12.[address] A/P in 2023 did not note renal mass. Patient reports weight loss of 15 pounds in last few months - Can be in setting of gastric bypass as well- Patient reports night sweats and feeling hot. ? Follow-up MR abdomen/pelvis pre and postcontrast ? Oncology consult as warranted. #Normocytic anemia, acute #Iron deficiency anemia States that she has had increased menstrual bleeding since being on Eliquis 5 mg twice daily and has since decreased dose to 5 mg daily. ? Follow-up iron panel ? Noted that patient is Religion ? Monitor for signs of bleeding #Portal vein thrombosis s/p portosystemic stent Noted to have PVT in 2023, likely secondary to liver disease as she has cirrhotic appearing liver on imaging which is likely secondary to MASH. ? Eliquis 5 mg twice daily ? Monitor for signs of bleeding #Hypokalemia ? Repleted and follow-up a.m. labs Hospital management: Disposition: IV antibiotics, cultures pending, MRI pending Fluids: LR boluses Diet: regular Lines: PIV DVT prophylaxis: eliquis, SCDs CODE STATUS: full code ----- Plan discussed with attending physician Dr. Hi Osborn MD PGY-2 Internal Medicine Attending Provider Attestation/Addendum After examination of the patient and review of the clinical data I feel that this patient needs admission to the hospital for further treatment/evaluation. Plan of care discussed with patient and is in agreement. I Rita Do MD, attest that I was physically present for rowe portions of evaluation, and examined patient, labs and imagings and plan of care were discussed with IM residents team, and I agree with the findings and plans documented above.
[2025-10-05 22:31] LABS: Iron < 5 mcg/dL (50-170); Percent Iron Saturation 3 % (20-55); Total Iron Binding Capacity 140 mcg/dL (250-425); Unsaturated Iron Binding 135 (225-295)
[2025-10-05 22:51] VITALS: BP 143/68; PULSE 91; RESP 17; TEMP 37.7; O2SAT 94
[2025-10-05 23:13] LABS: Lactate (Lactic Acid) 1.8 mMol/L (0.4-2.0)
--- NOTE | 2025-10-06 | XR_ITS ---
Examination: MRI pelvis with intravenous contrast. MRI pelvis without intravenous contrast. Date and time of exam: September 28, 2025, 1600 hours INDICATIONS: Right-sided renal tumor mass on CT examination October 05, 2025 Technique: Multiple axial, sagittal and coronal sections of the pelvis obtained. Transverse images, TR 6020, TE 107. T1 weighted transverse images, TR 582, TE 9.5. T2-weighted sagittal images, TR 4000, TE 105. T2-weighted sagittal images, TR 4000, TE 5. Coronal images, TR 4210, TE 107. Axial and coronal images are obtained post 20 cc intravenous injection, gadolinium. Findings: No common iliac external iliac internal iliac or common femoral lymphadenopathy No uterine or adnexal mass Contracted urinary bladder, no bladder mass or bladder calculi Homogeneous marrow signal visualized bones of the pelvis Mild edema in the soft tissue in the right pelvis, unclear etiology Right ovarian follicular cysts Moderate free fluid in the pelvis IMPRESSION: Moderate free fluid in the pelvis, recommend pelvic sonography follow-up
--- NOTE | 2025-10-06 | XR_ITS ---
Examination: MRI abdomen with intravenous contrast. MRI abdomen without intravenous contrast. Date and time of exam: October 06, 2025, 1600 hours INDICATIONS: Tumor mass upper pole right kidney 12.[address] abdomen yesterday Technique: Multiple axial, sagittal and coronal sections of the abdomen obtained. Transverse images, TR 6020, TE 107. T1 weighted transverse images, TR 582, TE 9.5. T2-weighted sagittal images, TR 4000, TE 105. T2-weighted sagittal images, TR 4000, TE 5. Coronal images, TR 4210, TE 107. Axial and coronal images are obtained post 20 cc intravenous injection, gadolinium. Findings: Precontrast images demonstrate no abnormal focal liver lesions Hepatomegaly 20 cm spleen sagittal dimension 12.3 cm Solid mass upper pole right kidney 13 x 12.5 cm This mass demonstrates irregular enhancement on the postcontrast images and displaces compresses the right renal vein No definite tumor thrombus in the right renal vein or inferior vena cava Spleen is not enlarged No abdominal lymphadenopathy No ascites IMPRESSION: 13 x 12.5 cm enhancing lesion medial upper pole right kidney consistent with renal cell carcinoma No tumor thrombus in the renal vein noted
[2025-10-06 00:23] LABS: Vitamin B12 717 pg/mL (211-911); Vitamin D 25 Hydroxy Total 48.6 ng/mL (7.3-40.2)
[2025-10-06 01:39] VITALS: BMI 55.7
[2025-10-06 04:00] VITALS: BP 124/60; PULSE 80; RESP 20; TEMP 36.2; O2SAT 95
[2025-10-06 05:56] LABS: Basophils # (Auto) 0.1 Thou/mm3 (0.0-0.2); Basophils % (Auto) 0 % (0-2.5); Eosinophils # (Auto) 0.1 Thou/mm3 (0.0-0.5); Eosinophils % (Auto) 0 % (0-10); Hematocrit 28.4 % (36.0-46.0); Hemoglobin 9.3 g/dL (12.0-16.0); Immature Granulocytes Auto 0.31 Thou/mm3 (0.00-0.00); Lymphocytes # (Auto) 0.9 Thou/mm3 (1.0-4.8); Lymphocytes % (Auto) 3 % (10-50); Mean Corpuscular HGB Conc 32.7 g/dl (31.0-37.0); Mean Corpuscular Hemoglobin 28.6 pg (25.0-35.0); Mean Corpuscular Volume 87 fL (80-100); Monocytes # (Auto) 0.3 Thou/mm3 (0.0-0.8); Monocytes % (Auto) 1 % (0-12); Neutrophils # (Auto) 27.9 Thou/mm3 (1.8-7.7); Neutrophils % (Auto) 95 % (37-80); Nucleated Red Blood Cell # 0.00 Thou/mm3 (0.00-0.00); Nucleated Red Blood Cell % 0 /100 WBC (0); Platelet Count 291 Thou/mm3 (140-440); RDW Standard Deviation 40.8 fL (36.4-46.3); Red Blood Count 3.25 Miln/mm3 (4.00-5.20); White Blood Count 29.6 Thou/mm3 (3.6-11.0)
[2025-10-06 06:30] LABS: Alanine Aminotransferase 11 U/L (10-49); Albumin, Serum 3.0 gm/dL (3.5-5.0); Albumin/Globulin Ratio 0.8 (1.2-2.2); Alkaline Phosphatase 128 U/L (46-116); Anion Gap 12 (7-16); Aspartate Amino Transferase 20 U/L (0-34); BUN/Creatinine Ratio 11 Ratio (12-20); Bilirubin,Total 0.8 mg/dL (0.3-1.2); Blood Urea Nitrogen 16 mg/dL (9-23); Calcium 8.1 mg/dL (8.3-10.6); Calcium (Corrected) 8.9 mg/dL (8.5-10.1); Carbon Dioxide 21.4 mMol/L (20.0-31.0); Chloride 104 mMol/L (98-107); Creatinine (Component) 1.5 mg/dL (0.6-1.3); Estimated Creatinine Clearance 86.3 mL/min (>60); Globulin 3.6 gm/dL (2.3-3.5); Glucose 178 mg/dL (74-106); Osmolality,Calculated 279 (275-295); Potassium 4.1 mMol/L (3.4-5.1); Sodium 137 mMol/L (136-145); Thyroid Stimulating Hormone 1.37 uIU/mL (0.55-4.78); Total Protein 6.6 gm/dL (5.7-8.2); eGFR 47 See Note
[2025-10-06 08:10] VITALS: BP 117/72; PULSE 67; RESP 15; TEMP 36.2; O2SAT 97
--- NOTE | 2025-10-06 08:48 | PC.SS ---
Follow up note: On IV antibiotic. MRI pending.
[2025-10-06] MEDS: cefTRIAXone 2 GM in SODIUM CHLORIDE 0.9% (Popper) 50 ML IV (09:10)
[2025-10-06] MEDS: APIXABAN 2.5 MG TABLET 5 MG PO ×2 (09:11→21:01)
--- NOTE | 2025-10-06 10:55 | PC.SS ---
SS met with patient and her sisterEdelmira regarding her d/c plan. Pt is alert/oriented. Pt was admitted for UTI. Pt confirmed demographic and contact information is correct on facesheet. Pt resides with her family (both parents, brother, and sister). Pt ambulates independently without assistance or DME. Pt is ok with all ADLs. 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 Pt named her sister, Edelmira Fletcher medical decision maker if she is unable. Patient?s choice is to return home upon d/c. Patient's sister or her parents will provide transportation. Pt states family will be bring her advance directive from home. Bedside nurse is aware to make copy and place in patient's chart. Pt states she is not diabetic and is not on dialysis. Pt states she followed up with PCP 1 month ago. D/C plan: Return home Next of Kin: Edelmira Fletcher, sister, phone# [phone] PCP: Dr. Sarah Arias Address: Correct on facesheet
--- NOTE | 2025-10-06 11:25 | ESPR_ITS ---
<Statement entered by Alfa Marti MD - 10/07/25 05:35> Patient was seen and examined at bedside. I agree on the assessment and plan on this note as documented by resident Dr Scout Maurer DO PGY1. 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 Patient on ceftriaxone, received adequate IV fluid boluses, MRI ordered for renal mass, will transfuse IV iron as iron panel shows severe iron deficiency anemia. Pending urine culture. Case discussed with attending Dr. Lorie Marti MD PGY-2 Documentation for date of: 10/06/25 Subjective Subjective Interval history: Iron panel on 10/05 afternoon revealed low iron <5 and CBC showed low Hgb of 9.3. Patient confirmed she is a member of the [employer] and declined blood transfusions under all circumstances. She consented to iron infusion as an acceptable alternative. Gave patient Benedryl 25mg po x1 before IV Ferumoxytol 510mg (Iron infusion) was given because patient noted that she previously had iron infusion which caused hives. The CT abd/pelvis w/o contrast (10/05/2025) showed a large tumor mass upper pole right kidney, 12.5 cm Needs to follow up on the right Renal mass. MRI abd wo/w contrast and MRI Pelvis wo/w contrast pending. Exam Vital Signs Temp Pulse Resp BP Pulse Ox O2 Del Method 97.2 F 67 15 117/72 97 Room Air 10/06/25 08:10 10/06/25 08:10 10/06/25 08:10 10/06/25 08:10 10/06/25 08:10 10/06/25 08:10 Narrative Exam General: AOx3, no acute distress, able to speak full sentences HEENT: NC/AT, mucous membranes moist, bilateral sclera anicteric Cardiovascular: tachycardic, regular rhythm, S1/S2 present, no murmurs appreciated Pulmonary: clear to auscultation bilaterally, no rales/rhonchi/wheezes Abdominal: obese, soft, non-tender, non-distended, no rebound/guarding, normal bowel sounds present Musculoskeletal: no CVA tenderness, normal ROM, no peripheral edema Skin: warm to touch, intact, no rashes Neuro: CN II-XII intact, no focal deficits Objective Labs 10/06/25 05:23 10/06/25 05:23 Labs: Laboratory Results - last 24 hr 10/05/25 10/05/25 10/05/25 15:44 15:54 16:11 WBC 5.6 RBC 3.70 L Hgb 10.5 L Hct 32.4 L MCV 88 MCH 28.4 MCHC 32.4 RDW Std Deviation 40.8 Plt Count 338 Neut % (Auto) 94 H Lymph % (Auto) 5 L King % (Auto) 0 Eos % (Auto) 0 Baso % (Auto) 0 Neut # (Auto) 5.2 Lymph # (Auto) 0.3 L King # (Auto) 0.0 Eos # (Auto) 0.0 Baso # (Auto) 0.0 Immature Gran # (Auto) 0.05 H Absolute Nucleated RBC 0.00 Immature Gran % 1 H Nucleated RBC % 0 PT 14.6 H INR 1.4 H APTT 29.5 Sodium 136 Potassium 3.3 L Chloride 102 Carbon Dioxide 20.7 Anion Gap 13 BUN 13 Creatinine 1.1 Estim Creat Clear Calc Not Performed. eGFR > 60 BUN/Creatinine Ratio 12 Glucose 114 H Calculated Osmolality 273 L Lactic Acid Calcium 8.1 L Corrected Calcium 8.7 Magnesium 1.6 Iron TIBC Iron Saturation Unsat Iron Binding Total Bilirubin 1.2 AST 17 ALT 10 Alkaline Phosphatase 148 H Troponin I < 0.002 B-Natriuretic Peptide 59 Total Protein 7.3 Albumin 3.3 L Globulin 4.0 H Albumin/Globulin Ratio 0.8 L Lipase Vitamin B12 25-OH Vitamin D Total Procalcitonin TSH Ur Collection Type Clean Catch Urine Color Yellow Urine Clarity Turbid A Urine pH 5.5 Ur Specific [place] 1.023 Urine Protein 1+ A Urine Glucose (UA) Negative Urine Ketones Negative Urine Blood 3+ A Urine Nitrite Positive Urine Bilirubin Negative Urine Urobilinogen (Auto) 4.0 Ur Leukocyte Esterase Positive Urine RBC 132 H Urine WBC 264 H Ur Squamous Epith Cells 8 H Urine Bacteria 4+ A Hyaline Casts < 1 Ur Culture Indicated? Yes Urine HCG, Qual Negative Urine Opiates Screen Negative Urine Fentanyl Screen Negative Ur Barbiturates Screen Negative U Amphetamin/Meth Scrn Negative U Benzodiazepines Scrn Negative U Cocaine Metab Screen Negative U Marijuana (THC) Screen Negative 11/10/05/25 10/05/25 17:10 21:23 23:08 WBC RBC Hgb Hct MCV MCH MCHC RDW Std Deviation Plt Count Neut % (Auto) Lymph % (Auto) King % (Auto) Eos % (Auto) Baso % (Auto) Neut # (Auto) Lymph # (Auto) King # (Auto) Eos # (Auto) Baso # (Auto) Immature Gran # (Auto) Absolute Nucleated RBC Immature Gran % Nucleated RBC % PT INR APTT Sodium Potassium Chloride Carbon Dioxide Anion Gap BUN Creatinine Estim Creat Clear Calc eGFR BUN/Creatinine Ratio Glucose Calculated Osmolality Lactic Acid 3.7 H 3.7 H 1.8 Calcium Corrected Calcium Magnesium Iron < 5 L TIBC 140 L Iron Saturation 3 L Unsat Iron Binding 135 L Total Bilirubin AST ALT Alkaline Phosphatase Troponin I B-Natriuretic Peptide Total Protein Albumin Globulin Albumin/Globulin Ratio Lipase 25 Vitamin B12 717 25-OH Vitamin D Total 48.6 H Procalcitonin 22.45 H TSH Ur Collection Type Urine Color Urine Clarity Urine pH Ur Specific [place] Urine Protein Urine Glucose (UA) Urine Ketones Urine Blood Urine Nitrite Urine Bilirubin Urine Urobilinogen (Auto) Ur Leukocyte Esterase Urine RBC Urine WBC Ur Squamous Epith Cells Urine Bacteria Hyaline Casts Ur Culture Indicated? Urine HCG, Qual Urine Opiates Screen Urine Fentanyl Screen Ur Barbiturates Screen U Amphetamin/Meth Scrn U Benzodiazepines Scrn U Cocaine Metab Screen U Marijuana (THC) Screen 10/06/25 05:23 WBC 29.6 H D RBC 3.25 L Hgb 9.3 L Hct 28.4 L MCV 87 MCH 28.6 MCHC 32.7 RDW Std Deviation 40.8 Plt Count 291 D Neut % (Auto) 95 H Lymph % (Auto) 3 L King % (Auto) 1 Eos % (Auto) 0 Baso % (Auto) 0 Neut # (Auto) 27.9 H Lymph # (Auto) 0.9 L King # (Auto) 0.3 Eos # (Auto) 0.1 Baso # (Auto) 0.1 Immature Gran # (Auto) 0.31 H Absolute Nucleated RBC 0.00 Immature Gran % 1 H Nucleated RBC % 0 PT INR APTT Sodium 137 Potassium 4.1 D Chloride 104 Carbon Dioxide 21.4 Anion Gap 12 BUN 16 Creatinine 1.5 H Estim Creat Clear Calc 86.3 eGFR 47 L BUN/Creatinine Ratio 11 L Glucose 178 H D Calculated Osmolality 279 Lactic Acid Calcium 8.1 L Corrected Calcium 8.9 Magnesium Iron TIBC Iron Saturation Unsat Iron Binding Total Bilirubin 0.8 AST 20 ALT 11 Alkaline Phosphatase 128 H D Troponin I B-Natriuretic Peptide Total Protein 6.6 Albumin 3.0 L Globulin 3.6 H Albumin/Globulin Ratio 0.8 L Lipase Vitamin B12 25-OH Vitamin D Total Procalcitonin TSH 1.37 Ur Collection Type Urine Color Urine Clarity Urine pH Ur Specific [place] Urine Protein Urine Glucose (UA) Urine Ketones Urine Blood Urine Nitrite Urine Bilirubin Urine Urobilinogen (Auto) Ur Leukocyte Esterase Urine RBC Urine WBC Ur Squamous Epith Cells Urine Bacteria Hyaline Casts Ur Culture Indicated? Urine HCG, Qual Urine Opiates Screen Urine Fentanyl Screen Ur Barbiturates Screen U Amphetamin/Meth Scrn U Benzodiazepines Scrn U Cocaine Metab Screen U Marijuana (THC) Screen Quality Measures Quality Measures none Assessment & Plan Assessment Current Active Medications: Generic Name Dose Route Start Last Admin Trade Name Freq PRN Reason Stop Dose Admin Apixaban 5 mg 10/06/25 09:00 10/06/25 09:11 Apixaban 2.5 Mg Tablet PO 10/27/25 08:59 5 mg BID CHANG Administration Ceftriaxone Sodium 2 gm/ 50 mls @ 100 mls/hr 10/06/25 09:00 10/06/25 09:10 Sodium Chloride IV 10/13/25 08:59 100 mls/hr QDAY CHANG Administration Ondansetron HCl 4 mg 10/05/25 21:52 Ondansetron Inj 2 Mg/Ml Inj 2 Ml IVP 11/04/25 21:51 Q6H PRN NAUSEA OR VOMITING Protocol Pharmacy Consult 1 each 10/06/25 02:00 Pharmacy To Consult Pneumovacc XX 11/05/25 01:59 PRN PRN CONSULT Pneumococcal Polyvalent Vaccine 0.5 ml 10/06/25 14:00 Pneumoc 20 Vaccine 0.5 Ml Syringe IMi 10/06/25 14:01 .ONCE ONE Plan 30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 #UTI with systemic signs/symptoms #Lactic acidosis Symptoms present for months per patient with dysuria, foul-smelling and cloudy urine. No CVA tenderness on exam but febrile and tachycardic with elevated lactate and procal seen on labs. UA shows turbid urine with 132 RBC, 264 WBC, nitrite and LE positive with 4+ bacteria. No previous culture results. ? IV Ceftriaxone 2g qd (10/05-) ? Continue IV fluid bolus resuscitation ? Follow-up urine and blood cultures ? Follow-up lactate ? Allergic to ibuprofen and Tylenol so cooling measures initiated instead #Right-sided renal mass seen on CT CT shows large mass seen at upper pole of right kidney (12.[address] A/P in 2023 did not note renal mass. ? Follow-up MR abdomen/pelvis pre and postcontrast #Normocytic anemia, acute -States that she has had increased menstrual bleeding since being on Eliquis 5 mg twice daily and has since decreased dose to 5 mg daily. -Iron panel on 10/05 afternoon revealed low iron <5 and CBC showed low Hgb of 9.3. -Patient confirmed she is a member of the [employer] and declined blood transfusions under all circumstances. She consented to iron infusion as an acceptable alternative. -Gave patient Benedryl 25mg po x1 before IV Ferumoxytol 510mg (Iron infusion) was given because patient noted that she previously had iron infusion which caused hives. -Received IV Ferumoxytol 510mg (Iron infusion) Plan: -Currently on Eliquis 5mg bid. 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 ? Eliquis 5 mg twice daily ? Monitor for signs of bleeding #Hypokalemia ? Repleted and follow-up a.m. labs Hospital management: Disposition: IV antibiotics, cultures pending, MRI pending Fluids: LR boluses Diet: regular Lines: PIV DVT prophylaxis: eliquis, SCDs CODE STATUS: full code Assessment and plan discussed with my attending physician Dr. Melo and Dr. Marti (PGY-2) Dr. Maurer (PGY-1) - Internal medicine resident Attending Provider Attestation/Addendum Patient has UTI. Imaging showed renal mass. Pending MRI study. The patient will receive IV iron. I discussed with and supervised the resident physician who took care of this patient. I agree with the assessment and plan as above.
[2025-10-06 12:00] VITALS: BP 144/89; PULSE 63; RESP 17; TEMP 36.4; O2SAT 95
[2025-10-06] MEDS: ferumoxytoL (NON-ESRD) 510 MG in SODIUM CHLORIDE 0.9% 100 ML 234 MG IV (14:04)
[2025-10-06] MEDS: RINGERS LACTATED 1000 ML 1,000 ML 75 ML IV (14:04)
[2025-10-06 16:00] VITALS: BP 129/85; PULSE 67; RESP 16; TEMP 36.6; O2SAT 96
[2025-10-06 20:00] VITALS: BP 111/64; PULSE 83; PULSE 92; RESP 16; TEMP 36.3; O2SAT 96
[2025-10-07] VITALS (8 sets, daily range): BP systolic 104–117; BP diastolic 58–79; PULSE 58–86; RESP 16–18; TEMP 36.1; O2SAT 94–98
[2025-10-07 06:28] LABS: Basophils # (Auto) 0.1 Thou/mm3 (0.0-0.2); Basophils % (Auto) 0 % (0-2.5); Eosinophils # (Auto) 0.0 Thou/mm3 (0.0-0.5); Eosinophils % (Auto) 0 % (0-10); Hematocrit 29.2 % (36.0-46.0); Hemoglobin 9.6 g/dL (12.0-16.0); Immature Granulocytes Auto 0.38 Thou/mm3 (0.00-0.00); Lymphocytes # (Auto) 1.4 Thou/mm3 (1.0-4.8); Lymphocytes % (Auto) 4 % (10-50); Mean Corpuscular HGB Conc 32.9 g/dl (31.0-37.0); Mean Corpuscular Hemoglobin 28.2 pg (25.0-35.0); Mean Corpuscular Volume 86 fL (80-100); Monocytes # (Auto) 0.9 Thou/mm3 (0.0-0.8); Monocytes % (Auto) 3 % (0-12); Neutrophils # (Auto) 30.2 Thou/mm3 (1.8-7.7); Neutrophils % (Auto) 92 % (37-80); Nucleated Red Blood Cell # 0.00 Thou/mm3 (0.00-0.00); Nucleated Red Blood Cell % 0 /100 WBC (0); Platelet Count 315 Thou/mm3 (140-440); RDW Standard Deviation 39.5 fL (36.4-46.3); Red Blood Count 3.40 Miln/mm3 (4.00-5.20); White Blood Count 33.0 Thou/mm3 (3.6-11.0)
[2025-10-07 06:52] LABS: Alanine Aminotransferase 11 U/L (10-49); Albumin, Serum 2.9 gm/dL (3.5-5.0); Albumin/Globulin Ratio 0.8 (1.2-2.2); Alkaline Phosphatase 129 U/L (46-116); Anion Gap 10 (7-16); Aspartate Amino Transferase 16 U/L (0-34); BUN/Creatinine Ratio 21 Ratio (12-20); Bilirubin,Total 0.4 mg/dL (0.3-1.2); Blood Urea Nitrogen 25 mg/dL (9-23); Calcium 8.8 mg/dL (8.3-10.6); Calcium (Corrected) 9.7 mg/dL (8.5-10.1); Carbon Dioxide 23.2 mMol/L (20.0-31.0); Chloride 107 mMol/L (98-107); Creatinine (Component) 1.2 mg/dL (0.6-1.3); Estimated Creatinine Clearance 107.8 mL/min (>60); Globulin 3.5 gm/dL (2.3-3.5); Glucose 116 mg/dL (74-106); Magnesium 2.3 mg/dL (1.6-2.6); Osmolality,Calculated 284 (275-295); Phosphorous 4.4 mg/dL (2.4-5.1); Potassium 4.4 mMol/L (3.4-5.1); Sodium 140 mMol/L (136-145); Total Protein 6.4 gm/dL (5.7-8.2); eGFR > 60 See Note
[2025-10-07] MEDS: LIDOCAINE 5% 1 PATCH TOP (07:47)
[2025-10-07] MEDS: cefTRIAXone 2 GM in SODIUM CHLORIDE 0.9% (Popper) 50 ML IV (08:33)
[2025-10-07] MEDS: APIXABAN 2.5 MG TABLET 5 MG PO ×2 (08:34→20:54)
[2025-10-07] MEDS: SIMETHICONE 80 MG CHEW PO (08:34)
[2025-10-07] MEDS: RINGERS LACTATED 1000 ML 1,000 ML 75 ML IV (08:34)
[2025-10-07] MEDS: ferumoxytoL (NON-ESRD) 510 MG in SODIUM CHLORIDE 0.9% 100 ML 234 MG IV (14:47)
--- NOTE | 2025-10-07 15:19 | PD.RESPRO ---
Documentation for date of: 10/07/25 Subjective Subjective Interval history: 30-year-old female with past medical history of portal vein thrombus, chronic anemia, morbid obesity and GERD admitted for complicated UTI. Patient urine culture positive for E. coli, blood culture 1/2 positive for GNR pending speciation MRI results was discussed with patient, MRI positive for suspected renal cell cancer right kidney upper pole, no tumor thrombus in renal vein, no evidence of metastasis noted on pelvis and abdomen MRI, there is moderate free fluid in pelvis. Patient's family was informed regarding imaging findings, patient is already established with hematology Dr. Mcrae at [place], encouraged to follow-up with him. Oncologist Dr. Chaney consulted as well Anticipate discharge in the next 24 to 48 hours once blood cultures have resulted Exam Vital Signs Temp Pulse Resp BP Pulse Ox O2 Del Method 97.0 F 77 17 112/61 94 L Room Air 10/07/25 12:00 10/07/25 12:00 10/07/25 12:00 10/07/25 12:00 10/07/25 12:00 10/07/25 12:00 Narrative Exam General: AOx3, no acute distress, able to speak full sentences HEENT: NC/AT, mucous membranes moist, bilateral sclera anicteric Cardiovascular: tachycardic, regular rhythm, S1/S2 present, no murmurs appreciated Pulmonary: clear to auscultation bilaterally, no rales/rhonchi/wheezes Abdominal: obese, soft, non-tender, non-distended, no rebound/guarding, normal bowel sounds present Musculoskeletal: no CVA tenderness, normal ROM, no peripheral edema Skin: warm to touch, intact, no rashes Neuro: CN II-XII intact, no focal deficits Objective Labs 10/07/25 05:14 10/07/25 05:14 Labs: Laboratory Results - last 24 hr 10/07/25 05:14 WBC 33.0 H RBC 3.40 L Hgb 9.6 L Hct 29.2 L MCV 86 MCH 28.2 MCHC 32.9 RDW Std Deviation 39.5 Plt Count 315 Neut % (Auto) 92 H Lymph % (Auto) 4 L [place] % (Auto) 3 Eos % (Auto) 0 Baso % (Auto) 0 Neut # (Auto) 30.2 H Lymph # (Auto) 1.4 [place] # (Auto) 0.9 H Eos # (Auto) 0.0 Baso # (Auto) 0.1 Immature Gran # (Auto) 0.38 H Absolute Nucleated RBC 0.00 Immature Gran % 1 H Nucleated RBC % 0 Sodium 140 Potassium 4.4 Chloride 107 Carbon Dioxide 23.2 Anion Gap 10 BUN 25 H Creatinine 1.2 Estim Creat Clear Calc 107.8 eGFR > 60 BUN/Creatinine Ratio 21 H Glucose 116 H D Calculated Osmolality 284 Calcium 8.8 Corrected Calcium 9.7 Phosphorus 4.4 Magnesium 2.3 Total Bilirubin 0.4 AST 16 ALT 11 Alkaline Phosphatase 129 H Total Protein 6.4 Albumin 2.9 L Globulin 3.5 Albumin/Globulin Ratio 0.8 L Quality Measures Quality Measures VTE therapy Assessment & Plan Assessment Current Active Medications: Generic Name Dose Route Start Last Admin Trade Name Freq PRN Reason Stop Dose Admin Albuterol/Ipratropium 3 ml 10/06/25 12:59 Albuterol/Ipratropium (Duoneb) Rt Veronica 3 Ml Nebu INH 11/05/25 12:58 Q2HR PRN SHORTNESS OF BREATH OR WHEEZE Apixaban 5 mg 10/06/25 09:00 10/07/25 08:34 Apixaban 2.5 Mg Tablet PO 10/27/25 08:59 5 mg BID CHANG Administration Ceftriaxone Sodium 2 gm/ 50 mls @ 100 mls/hr 10/06/25 09:00 10/07/25 08:33 Sodium Chloride IV 10/13/25 08:59 100 mls/hr QDAY CHANG Administration Lidocaine 1 patch 10/07/25 14:41 Lidocaine 5% 1 Patch TOP 11/06/25 14:40 UD PRN Back Pain Protocol Ondansetron HCl 4 mg 10/05/25 21:52 Ondansetron Inj 2 Mg/Ml Inj 2 Ml IVP 11/04/25 21:51 Q6H PRN NAUSEA OR VOMITING Protocol Pharmacy Consult 1 each 10/06/25 02:00 Pharmacy To Consult Pneumovacc XX 11/05/25 01:59 PRN PRN CONSULT Plan 30-year-old female who is Roman Catholic with a past medical history of obesity status post gastric bypass in 2023 and subsequently found to have portal vein thrombosis and status post portosystemic stent on Eliquis, large right-sided renal mass who is admitted for management of UTI with systemic signs/symptoms and further evaluation of right-sided renal mass. #GNR bacteremia #Complicated UTI #Lactic acidosis Symptoms present for months per patient with dysuria, foul-smelling and cloudy urine. No CVA tenderness on exam but febrile and tachycardic with elevated lactate and procal seen on labs. UA shows turbid urine with 132 RBC, 264 WBC, nitrite and LE positive with 4+ bacteria. No previous culture results. Urine culture positive for E. coli sensitive to ceftriaxone, blood culture 1/2 positive for GNR ? IV Ceftriaxone 2g qd (10/05-) ? Follow-up blood culture speciation ? Allergic to ibuprofen and Tylenol so cooling measures initiated instead - Oxycodone as needed for pain, lidocaine patch and Flexeril not effective #Suspicion of renal send cancer #Right-sided renal mass seen on CT CT shows large mass seen at upper pole of right kidney (12.[address] A/P in 2023 did not note renal mass. MRI positive for suspected renal cell cancer right kidney upper pole, no tumor thrombus in renal vein, no evidence of metastasis noted on pelvis and abdomen MRI, there is moderate free fluid in pelvis. - Oncology Dr. Chaney consulted - Patient already established with hematology/oncology in [place] Dr. Mcrae #Normocytic anemia, acute -States that she has had increased menstrual bleeding since being on Eliquis 5 mg twice daily and has since decreased dose to 5 mg daily. -Iron panel on 10/05 afternoon revealed low iron <5 and CBC showed low Hgb of 9.3. -Patient confirmed she is a member of the [employer] and declined blood transfusions under all circumstances. She consented to iron infusion as an acceptable alternative. -Gave patient Benedryl 25mg po x1 before IV Ferumoxytol 510mg (Iron infusion) was given because patient noted that she previously had iron infusion which caused hives. -Received IV Ferumoxytol 510mg (Iron infusion) Iron panel shows severe iron deficiency Plan: -Currently on Eliquis 5mg bid. 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 ? Eliquis 5 mg twice daily ? Monitor for signs of bleeding #Hypokalemia ? Repleted and follow-up a.m. labs Hospital management: Disposition: IV antibiotics, blood culture speciation pending Fluids: LR boluses Diet: regular Lines: PIV DVT prophylaxis: eliquis, SCDs CODE STATUS: full code Case discussed with Attending Physician Dr. Jose Madera MD Internal Medicine PGY-2 Disclaimer: This note was dictated by speech recognition. Minor errors in child development teacher may be present due to voice recognition software. Attending Provider Attestation/Addendum I have discussed and was present for the essential components of the history, physical examination, diagnosis, and treatment plan with the resident. I agree with the patient's care as documented by the resident and amended herein by me. Alex Benedict DO. Although this document has been carefully reviewed, there may still be some phonetic and other typographical errors. These errors are purely grammatical due to imperfections in the software program and should not be construed in any way to compromise the substance of the patient's medical care during this visit. Patient seen and evaluated this AM. Patient doing well, no acute events overnight, urine culture demonstrating pansensitive E. coli, blood cultures demonstrating gram-negative rods, has yet to speciate. WBC 33, likely from the steroids the patient got in the ED, hemoglobin 9.6, BUN 25 creatinine is down trended to 1.2. For the patient's UTI, possible pyelonephritis will continue ceftriaxone for 7 days, which will also be the required course for the patient's bacteremia assuming that her present antibiotics, ceftriaxone is adequate. For the patient's renal mass, Dr. Chaney has been consulted, appreciate recommendations, patient will need to follow-up with her outpatient senior production supervisor/oncologist for further workup and treatment. For the patient's prolonged QT C, we will avoid QT prolonging medications, patient is also on Eliquis for her previously diagnosed portal vein thrombosis, will continue Eliquis 5 mg twice daily.
[2025-10-07] MEDS: oxyCODONE HCL 5 MG IR TAB PO (18:32)
[2025-10-08] VITALS: BP 129/54; PULSE 45; PULSE 53; RESP 18; TEMP 35.9; O2SAT 96
[2025-10-08] MEDS: oxyCODONE HCL 5 MG IR TAB PO ×2 (00:30→08:59)
--- NOTE | 2025-10-08 02:16 | EKG_ITS ---
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
[2025-10-08 04:00] VITALS: BP 116/52; PULSE 44; PULSE 54; RESP 18; TEMP 36.1; O2SAT 96
[2025-10-08 05:38] LABS: Basophils # (Auto) 0.0 Thou/mm3 (0.0-0.2); Basophils % (Auto) 0 % (0-2.5); Eosinophils # (Auto) 0.0 Thou/mm3 (0.0-0.5); Eosinophils % (Auto) 0 % (0-10); Hematocrit 26.8 % (36.0-46.0); Immature Granulocytes Auto 0.12 Thou/mm3 (0.00-0.00); Lymphocytes # (Auto) 2.5 Thou/mm3 (1.0-4.8); Lymphocytes % (Auto) 12 % (10-50); Mean Corpuscular HGB Conc 32.1 g/dl (31.0-37.0); Mean Corpuscular Hemoglobin 28.1 pg (25.0-35.0); Mean Corpuscular Volume 88 fL (80-100); Monocytes # (Auto) 1.0 Thou/mm3 (0.0-0.8); Monocytes % (Auto) 5 % (0-12); Neutrophils # (Auto) 16.9 Thou/mm3 (1.8-7.7); Neutrophils % (Auto) 83 % (37-80); Nucleated Red Blood Cell # 0.00 Thou/mm3 (0.00-0.00); Nucleated Red Blood Cell % 0 /100 WBC (0); Platelet Count 376 Thou/mm3 (140-440); RDW Standard Deviation 42.2 fL (36.4-46.3); Red Blood Count 3.06 Miln/mm3 (4.00-5.20); White Blood Count 20.5 Thou/mm3 (3.6-11.0)
[2025-10-08 05:39] LABS: Hemoglobin 8.6 g/dL (12.0-16.0)
[2025-10-08 05:56] LABS: Alanine Aminotransferase 12 U/L (10-49); Albumin, Serum 2.7 gm/dL (3.5-5.0); Albumin/Globulin Ratio 0.9 (1.2-2.2); Alkaline Phosphatase 111 U/L (46-116); Anion Gap 9 (7-16); Aspartate Amino Transferase < 10 U/L (0-34); BUN/Creatinine Ratio 27 Ratio (12-20); Bilirubin,Total 0.3 mg/dL (0.3-1.2); Blood Urea Nitrogen 24 mg/dL (9-23); Calcium 9.0 mg/dL (8.3-10.6); Calcium (Corrected) 10.0 mg/dL (8.5-10.1); Carbon Dioxide 25.0 mMol/L (20.0-31.0); Chloride 109 mMol/L (98-107); Creatinine (Component) 0.9 mg/dL (0.6-1.3); Estimated Creatinine Clearance 143.8 mL/min (>60); Globulin 3.1 gm/dL (2.3-3.5); Glucose 76 mg/dL (74-106); Osmolality,Calculated 287 (275-295); Potassium 4.0 mMol/L (3.4-5.1); Sodium 143 mMol/L (136-145); Total Protein 5.8 gm/dL (5.7-8.2); eGFR > 60 See Note
[2025-10-08 07:36] VITALS: BP 126/72; PULSE 60; RESP 18; TEMP 36.1; O2SAT 96
[2025-10-08 08:00] VITALS: PULSE 76
[2025-10-08] MEDS: APIXABAN 2.5 MG TABLET 5 MG PO (08:59)
[2025-10-08] MEDS: cefTRIAXone 2 GM in SODIUM CHLORIDE 0.9% (Popper) 50 ML IV (09:00)
[2025-10-08 11:55] VITALS: BP 126/74; PULSE 72; RESP 18; TEMP 36.1; O2SAT 96
[2025-10-08 12:00] VITALS: PULSE 66
--- NOTE | 2025-10-08 14:49 | PD.RESDS ---
Planned Discharge Date 10/08/25 DS: Providers Provider Date of admission: 10/06/25 01:24 Primary care physician: Sarah Arias MD Admitting Provider: Rita Do MD Attending Provider on Admission: Rita Do MD Consults: 10/06/25 02:08 Referral Respiratory Therapy Routine Comment: 10/06/25 21:32 Consult to Oncology Routine Comment: Renal Cell CA Consulting Provider: Felix Chaney Attending Provider on DC: Jose Benedict DO Discharging Provider: Travis Martin MD DS: Diagnosis Problem List Completed Was Problem List Reviewed/Reconciled?: Yes Hospital Course Hospital Course Hospital course: 30 y/o F with PMHx significant for portal vein thrombus, chronic anemia, morbid obesity and GERD admitted for complicated UTI. CT imaging revealed large mass seen at upper pole of right kidney (12.5 cm).MRI imaging revealed suspicion for renal cell cancer. Results were discussed with patient who expressed understanding of her condition, oncology consulted. Patient encouraged to follow-up with established industrial x ray operator Dr. Mcrae in [place]. Blood and urine culture positive for pansensitive E. coli. Patient given IV iron infusion for anemia. Treated inpatient with IV ceftriaxone. Patient medically stable for discharge. Diagnoses: #GNR bacteremia #Complicated UTI #Lactic acidosis #Right-sided renal mass seen on CT, suspicious for renal cell cancer #Normocytic anemia, acute #Portal vein thrombosis s/p portosystemic stent #Hypokalemia Discharge plan: You have been started on the following medications: - Levaquin 750mg once daily for 4 days - Tramadol 50mg as needed for pain, up to 3 times daily, 14 doses total Please continue all other medications as previously prescribed. Please follow up with your primary doctor in 7-10 days Please follow up with heme/oncology Dr. Mcrae VINICIO. Follow up for renal mass at upper pole of right kidney (12.5 cm). Return to ED if you develop new or worsening symptoms. Plan of care discussed with attending Dr. Benedict. Travis Martin MD PGY?2 Status at Discharge Functional status at discharge: independent ambulation Overall status at discharge: patient is back to baseline Time Spent with Patient Time attestation: Total time spent providing and/or coordinating discharge services: Time spent: Greater than 30 minutes Exam Vital Signs Temp Pulse Resp BP Pulse Ox O2 Del Method 97.0 F 66 18 126/74 96 Room Air 10/08/25 11:55 10/08/25 12:00 10/08/25 11:55 10/08/25 11:55 10/08/25 11:55 10/08/25 11:55 Narrative Exam General: AOx3, no acute distress, able to speak full sentences HEENT: NC/AT, mucous membranes moist, bilateral sclera anicteric Cardiovascular: tachycardic, regular rhythm, S1/S2 present, no murmurs appreciated Pulmonary: clear to auscultation bilaterally, no rales/rhonchi/wheezes Abdominal: obese, soft, non-tender, non-distended, no rebound/guarding, normal bowel sounds present Musculoskeletal: no CVA tenderness, normal ROM, no peripheral edema Skin: warm to touch, intact, no rashes Neuro: CN II-XII intact, no focal deficits Discharge Plan Plan Patient Disposition: HOME (Self Care) Patient condition on transfer: Stable Care Plan Goals: You have been started on the following medications: - Levaquin 750mg once daily for 4 days - Tramadol 50mg as needed for pain, up to 3 times daily, 14 doses total Please continue all other medications as previously prescribed. Please follow up with your primary doctor in 7-10 days Please follow up with heme/oncology Dr. Clementina MOONEY. Follow up for renal mass at upper pole of right kidney (12.5 cm). Return to ED if you develop new or worsening symptoms. Prescriptions/Referrals Prescriptions/Med Rec: New levofloxacin 750 mg tablet 750 mg PO QDAY 4 Days Qty: 4 0RF tramadol 50 mg tablet 50 mg PO TID MDD 3 PRN (Reason: pain) 7 Days Qty: 14 0RF Continued Eliquis 5 mg tablet 5 mg PO BID Patient Comments: TAKE 1 TABLET BY MOUTH TWICE A DAY Rx Instructions: pt only takes only Once a day because BID causes blood clots in the urine, it's pretty noticiable- the blood. omeprazole 40 mg capsule,delayed release(DR/EC) 40 mg PO DAILY Patient Comments: TAKE 1 CAPSULE BY MOUTH 1 TIME EACH DAY. albuterol 90 mcg/actuation aerosol 180 mcg inhalation BID PRN (Reason: sob) topiramate 50 mg tablet 50 mg PO BID Patient Comments: TAKE 1 TABLET BY MOUTH TWICE A DAY Rx Instructions: Prescribed but pt has not been taking because it interacts with eliquis and causes blood clots in urine. Discontinued acetaminophen-codeine 300-30 mg tablet 2 tab PO Q8H MDD 6 PRN (Reason: pain) Qty: 20 0RF Referrals: Sarah Arias MD [Primary Care Provider, Family Practice] Patient/Caregiver Discharge Instructions Discharge Activity: activity as tolerated Education Materials: Understanding Urinary Tract ... Print Language: Slovak Stand Alone Forms: Dominique Award Info., Patient Portal Info Letter Discharge Order Discharge Orders: Discharge (Routine); Ordered 10/08/25 Ordered By: Travis Martin Quality Discharge Quality Measures VTE prophylaxis MD Attestestation MD Attestation I have discussed and was present for the essential components of the discharge history, physical examination, diagnosis, and discharge treatment plan with the resident. I agree with the patient's discharge care as documented by the resident and amended herein by me. Alex Benedict, . The patient understood all discharge instructions, all questions were answered satisfactorily. The patient was instructed to return to the Emergency Department is symptoms worsened or persisted. In short patient was a Zoroastrianism status post gastric bypass surgery found to have portal vein thrombosis presented to the ED for generalized malaise, lightheadedness and dizziness. Patient also had symptoms of UT found to be bacteremic with E. coli. Patient will be discharged on a short course of levofloxacin 750 mg daily for additional 4 more days. Unfortunately during imaging, an abdominal MRI did discover a 13 x 12.5 cm enhancing lesion in the medial upper pole of the right kidney consistent with renal cell carcinoma. Patient does follow with hematology/oncology in the outpatient setting for her portal vein thrombosis apparently, however will need to follow-up for further workup and evaluation of the renal mass. She understood, patient sent out the short course of tramadol for pain control. The patient was stable, afebrile, tolerating p.o. intake and ambulatory at time of discharge home. Although this document has been carefully reviewed, there may still be some phonetic and other typographical errors. These errors are purely grammatical due to imperfections in the software program and should not be construed in any way to compromise the substance of the patient's medical care during this visit.
[2025-10-16 06:43] LABS: Copper* 156 mcg/dL (70-175); Zinc, Plasma* 23 mcg/dL (60-130)
== END 2025-10-08 13:27 | disposition home or self-care (01) | DRG 689 ==
LOC: SERX 22:13 → SERHOLD 10-06 01:26 → S3SX 10-06 01:37
PROVIDERS: Nurse Practitioner Primary Care; Admitting Provider Student in an Organized Health Care Education/Training Program; Emergency Provider Emergency Medicine; PCP Family Medicine; Visit Provider Student in an Organized Health Care Education/Training Program
DX: N39.0 Urinary tract infection, site not specified (principal); I81 Portal vein thrombosis; E87.20 Acidosis, unspecified; N28.89 Other specified disorders of kidney and ureter; D50.9 Iron deficiency anemia, unspecified; Z88.6 Allergy status to analgesic agent; E87.6 Hypokalemia; E66.01 Morbid (severe) obesity due to excess calories; Z79.01 Long term (current) use of anticoagulants; Z98.84 Bariatric surgery status; Z86.718 Personal history of other venous thrombosis and embolism
CPT/HCPCS: 36415; 71045; 72197; 74176; 74183; 80053; 80307; 81001; 81025; 82306; 82525; 82607; 83540; 83550; 83605; 83690; 83735; 83880; 84100; 84145; 84443; 84484; 84630; 85025; 85610; 85730; 87040; 87077; 87086; 87186; 93005; 93225; 94664; 96365; 96375; 99285; A9577; J0696; J1200; J1885; J2270; J2405; J2919; J3490; J7050; J7120; Q0138; A9270

== ENCOUNTER 2025-10-12 19:43 | Emergency (ER) | payer BC, SELFPAY ==
[2025-10-12 19:45] VITALS: BMI 55.5
[2025-10-12 19:53] VITALS: BP 114/63; PULSE 126; RESP 20; TEMP 37.2; O2SAT 95
--- NOTE | 2025-10-12 19:56 | EKG_ITS ---
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1995 Requested By: Jesse Hill Order Number: [id number] Reading MD: Jesse Hill Measurements Intervals [place] Rate: 122 P: 50 MT: 112 QRS: 104 QRSD: 94 T: -6 QT: 338 QTc: 482 Interpretive Statements SINUS TACHYCARDIA WITH SHORT MT INTERVAL RIGHT AXIS DEVIATION [QRS AXIS > 100] INCOMPLETE RIGHT BUNDLE BRANCH BLOCK [90+ ms QRS DURATION, TERMINAL R IN V1/V2, 40+ ms S IN I/aVL/V4/V5/V6] NONSPECIFIC ST & T-WAVE ABNORMALITY Compared to ECG 10/08/2025 02:46:33 Short MT interval now present Right-axis deviation now present Incomplete right bundle-branch block now present Sinus bradycardia no longer present Sinus arrhythmia no longer present T-wave abnormality still present /store/S0/[id number]/ecg/[id number].pdf
--- NOTE | 2025-10-12 20:10 | PD.EDRME ---
Rapid Medical Screening Exam RME Arrival date/time: 10/12/25 19:43 30F with history of portal vein thrombus, chronic anemia, morbid obesity and GERD presents to ED with continued flank pain, N/V, fevers/chills, and some SOB. Patient denies URI symptoms. Patient recently admitted for septic UTI. Blood and urine cultures grew aden-sensitive E. coli, except for FQs, which patient was discharged with. Chief Complaint: Shortness of Breath/Dyspnea Time Seen by Provider: 10/12/25 22:00 Vital signs: Vital Signs Temperature 99.0 F 10/12/25 19:53 Pulse Rate 126 H 10/12/25 19:53 Respiratory Rate 20 10/12/25 19:53 Blood Pressure 114/63 10/12/25 19:53 Pulse Oximetry (%) 95 10/12/25 19:53 Oxygen Delivery Method Room Air 10/12/25 19:53 Exam: Clear lungs and normal WOB. Appears uncomfortable Clinical Impression: UTI/pyelo vs sepsis vs infected kidney stone vs PE vs CAP
--- NOTE | 2025-10-12 20:11 | XR_ITS ---
EXAMINATION: AP chest single view TECHNIQUE: Upright AP portable chest single view Date and time: October 12, 2025, 2055 hours, comparison October 05, 2025 INDICATIONS: Fever shortness of breath dizzy and nauseous 1 week FINDINGS: Mild enlargement cardiac contour Detail is very poor on this study Prominent vascular congestion Mild opacity right base Blunting of the right lateral costophrenic angle The film is underpenetrated IMPRESSION: Recommend repeat PA lateral chest follow-up to exclude pneumonia at the right base right pleural effusion
[2025-10-12] MEDS: cefTRIAXone 2 GM in SODIUM CHLORIDE 0.9% (Popper) 50 ML IV (21:03)
[2025-10-12] MEDS: SODIUM CHLORIDE 0.9% 1000 ML 1,000 ML 999 ML IV (21:19)
[2025-10-12 21:30] LABS: Lactate (Lactic Acid) 2.6 mMol/L (0.4-2.0)
[2025-10-12 21:34] LABS: Basophils # (Auto) 0.1 Thou/mm3 (0.0-0.2); Basophils % (Auto) 0 % (0-2.5); Eosinophils # (Auto) 0.0 Thou/mm3 (0.0-0.5); Eosinophils % (Auto) 0 % (0-10); Hematocrit 32.2 % (36.0-46.0); Hemoglobin 10.4 g/dL (12.0-16.0); Immature Granulocytes Auto 0.31 Thou/mm3 (0.00-0.00); Lymphocytes # (Auto) 0.6 Thou/mm3 (1.0-4.8); Lymphocytes % (Auto) 3 % (10-50); Mean Corpuscular HGB Conc 32.3 g/dl (31.0-37.0); Mean Corpuscular Hemoglobin 28.0 pg (25.0-35.0); Mean Corpuscular Volume 87 fL (80-100); Monocytes # (Auto) 0.4 Thou/mm3 (0.0-0.8); Monocytes % (Auto) 2 % (0-12); Neutrophils # (Auto) 16.6 Thou/mm3 (1.8-7.7); Neutrophils % (Auto) 92 % (37-80); Nucleated Red Blood Cell # 0.00 Thou/mm3 (0.00-0.00); Nucleated Red Blood Cell % 0 /100 WBC (0); Platelet Count 237 Thou/mm3 (140-440); RDW Standard Deviation 42.2 fL (36.4-46.3); Red Blood Count 3.72 Miln/mm3 (4.00-5.20); White Blood Count 18.0 Thou/mm3 (3.6-11.0)
[2025-10-12 21:59] LABS: Alanine Aminotransferase 11 U/L (10-49); Albumin, Serum 3.0 gm/dL (3.5-5.0); Albumin/Globulin Ratio 0.8 (1.2-2.2); Alkaline Phosphatase 233 U/L (46-116); Anion Gap 9 (7-16); Aspartate Amino Transferase 21 U/L (0-34); BUN/Creatinine Ratio 10 Ratio (12-20); Bilirubin,Total 0.9 mg/dL (0.3-1.2); Blood Urea Nitrogen 11 mg/dL (9-23); Calcium 8.5 mg/dL (8.3-10.6); Calcium (Corrected) 9.3 mg/dL (8.5-10.1); Carbon Dioxide 25.7 mMol/L (20.0-31.0); Chloride 101 mMol/L (98-107); Creatinine (Component) 1.1 mg/dL (0.6-1.3); Estimated Creatinine Clearance 117.5 mL/min (>60); Globulin 4.0 gm/dL (2.3-3.5); Glucose 95 mg/dL (74-106); Osmolality,Calculated 271 (275-295); Potassium 3.4 mMol/L (3.4-5.1); Procalcitonin 15.27 ng/ml (0.0-0.49); Sodium 136 mMol/L (136-145); Total Protein 7.0 gm/dL (5.7-8.2); eGFR > 60 See Note
--- NOTE | 2025-10-12 22:04 | XR_ITS ---
EXAMINATION: Lateral chest single view TECHNIQUE: Lateral portable chest single view Date and time: October 12, 2025, 10:32 p.m., comparison to AP chest film 8:36 p.m. FINDINGS: Pneumonia right base with small right pleural effusion Prominent left ventricle IMPRESSION: Pneumonia right base with small right pleural effusion
--- NOTE | 2025-10-12 22:24 | EDNOTE_ITS ---
ED General RME/HPI General Chief complaint: Shortness of Breath/Dyspnea Stated complaint: FEVER, BACK PAIN, SOB, DIZZY, NAUSEA Time Seen by Provider: 10/12/25 22:00 Arrival date/time: 10/12/25 19:43 RME / HPI RME / HPI narrative: 10/12/25 19:43 30F with history of portal vein thrombus, chronic anemia, morbid obesity and GERD presents to ED with continued flank pain, N/V, fevers/chills, and some SOB. Patient denies URI symptoms. Patient recently admitted for septic UTI. Blood and urine cultures grew aden-sensitive E. coli, except for FQs, which patient was discharged with. Exam: Clear lungs and normal WOB. Appears uncomfortable Impression: UTI/pyelo vs sepsis vs infected kidney stone vs PE vs CAP Related Data Home Medications ?Medication ?Instructions ?Recorded ?Confirmed albuterol 90 mcg/actuation aerosol 180 mcg inhalation BID PRN sob 10/06/25 10/06/25 inhaler apixaban 5 mg tablet (Eliquis) 5 mg PO BID DVT in port al vein 10/06/25 10/06/25 omeprazole 40 mg capsule,delayed 40 mg PO DAILY 10/06/25 release topiramate 50 mg tablet 50 mg PO BID appetite suppre arielle 10/06/25 10/06/25 Previous Rx's ?Medication ?Instructions ?Recorded tramadol 50 mg tablet 50 mg PO TID PRN pain 1 week #14 10/08/25 tabs doxycycline monohydrate 100 mg 100 mg PO BID 10 days # 20 caps 10/12/25 capsule moxifloxacin 400 mg tablet 400 mg PO QDAY 10 days #10 tabs 10/13/25 Allergies Allergy/AdvReac Type Severity Reaction Status Date / Time acetaminophen Allergy Swelling Verified 10/12/25 19:45 of Lip/Tongue/Throat ibuprofen Allergy Swelling Verified 10/12/25 19:45 of Lip/Tongue/Throat iron Allergy Difficulty Verified 10/12/25 19:45 Breathing Penicillins Allergy Swelling Verified 10/12/25 19:45 of Lip/Tongue/Throat ED Exam Narrative Physical exam: Physical Exam: GENERAL: Awake, answering questions appropriately, appears stated age, morbidly obese HEENT: NC/AT. Moist mucosa. PERRLA/EOMI. CARDIO: Tachycardia, no obvious murmurs, no JVD. PULM: No coughing or visible SOB. Lungs CTA B/L. GI: Abdomen soft, NT/ND, +BS. SKIN/MSK/EXT: No wounds/discoloration/rashes/edema/amputations. +Pedal pulses present B/L. NEURO: Oriented x3, Moves extremities x4, no focal neurologic deficits noted. Course Quality Measures none Orders Category Date Time Status Pocket Setter Lockstitch STAT Care 10/12/25 23:34 Active Continuous Pulse Oximetry STAT Care 10/12/25 23:34 Active EKG (ED ONLY) *Do not use* NOW Care 10/12/25 19:56 Completed EKG (ED ONLY) *Do not use* NOW Care 10/12/25 23:34 Active Insert IV NOW Care 10/12/25 20:08 Active Strict Intake and Output Routine Care 10/12/25 23:34 Ordered CXRP [XR chest 1V portable] Stat Exams 10/12/25 22:04 Completed EKG (ED Only) Stat Exams 10/12/25 19:56 Draft EKG (ED Only) Stat Exams 10/12/25 23:34 Ordered XR chest 1V portable Stat Exams 10/12/25 20:11 Completed Blood Culture (Lab) Stat Lab 10/12/25 20:50 Received CBC Stat Lab 10/12/25 20:54 Completed CMP [Comprehensive Metabolic Panel] Stat Lab 10/12/25 20:54 Completed Lactate (Lactic Acid) Stat Lab 10/12/25 20:54 Completed Lactic Acid, 3 HR Stat Lab 10/13/25 00:40 Completed Procalcitonin Stat Lab 10/12/25 20:54 Completed Urinalysis, C/S if Indicated Stat Lab 10/12/25 23:34 Ordered Ringers Lactated 1000 ml [Lactated Ringers] 1,000 ml Med 10/12/25 23:34 Discontinued IV 999 mls/hr Sodium Chloride 0.9% 1000 ml [Ns] 1,000 ml Med 10/12/25 20:08 Discontinued IV 999 mls/hr Sodium Chloride 0.9% 1000 ml [Ns] 1,000 ml Med 10/12/25 20:12 Discontinued IV 999 mls/hr cefTRIAXone [Rocephin] 2 gm Med 10/12/25 20:09 Discontinued SODIUM CHLORIDE 0.9% (Popper) [Ns 0.9% (P)] 50 ml IV X1 Oxygen Delivery NOW RT 10/12/25 23:34 Active Vital Signs Vital signs: Vital Signs Temperature 99.0 F 10/12/25 19:53 Pulse Rate 126 H 10/12/25 19:53 Respiratory Rate 20 10/12/25 19:53 Blood Pressure 114/63 10/12/25 19:53 Pulse Oximetry (%) 95 10/12/25 19:53 Oxygen Delivery Method Room Air 10/12/25 19:53 Discharge Plan Plan Patient Disposition: HOME (Self Care) Discharge Disposition comment: Please take doxycycline 100 mg by mouth twice a day and moxifloxacin 400 mg by mouth once a day for 10 days Follow-up with your primary care provider within the next 5 days If your symptoms worsen or if you develop worsening chest pain, shortness of breath or fever/chills please come back to the ED immediately. Patient condition on transfer: Stable Prescriptions/Referrals Prescriptions/Med Rec: New doxycycline monohydrate 100 mg capsule 100 mg PO BID 10 Days Qty: 20 0RF moxifloxacin 400 mg tablet 400 mg PO QDAY 10 Days Qty: 10 0RF No Action Eliquis 5 mg tablet 5 mg PO BID Patient Comments: TAKE 1 TABLET BY MOUTH TWICE A DAY Rx Instructions: pt only takes only Once a day because BID causes blood clots in the urine, it's pretty noticiable- the blood. omeprazole 40 mg capsule,delayed release(DR/EC) 40 mg PO DAILY Patient Comments: TAKE 1 CAPSULE BY MOUTH 1 TIME EACH DAY. albuterol 90 mcg/actuation aerosol 180 mcg inhalation BID PRN (Reason: sob) topiramate 50 mg tablet 50 mg PO BID Patient Comments: TAKE 1 TABLET BY MOUTH TWICE A DAY Rx Instructions: Prescribed but pt has not been taking because it interacts with eliquis and causes blood clots in urine. tramadol 50 mg tablet 50 mg PO TID MDD 3 PRN (Reason: pain) 7 Days Qty: 14 0RF Problem List Clinical Impression: Community acquired bacterial pneumonia Patient/Caregiver Discharge Instructions Education Materials: What Is Pneumonia?, Treating Pneumonia Print Language: Turkmen Stand Alone Forms: Dominique Award Info., Patient Portal Info Letter MD Attestation Attestation I, Dr. Chavez, have reviewed the history, exam, and assessment of the patie nt. I have evaluated the patient independently and agree with the plan of care documented by the resident Dr. Giron. All diagnostic studies were reviewed and discussed. I confirm the diagnosis as documented by the resident. I was present during the Medical Decision Making for this patient. The patient?s plan of care was created between myself and the resident and consistent with our discussion of the patient?s case. MDM Narrative MDM hospital course (for use when minimal MDM required): HPI: 30-year-old female with past medical history of gastric sleeve procedure complicated by renal vein thrombosis, recently diagnosed with the renal mass followed by oncology in [place], morbid obesity, recently treated E. coli bacteremia presenting to the ED on 10/12 with fever and shortness of breath. Patient states that since being discharged she has not felt very well but currently made some improvement for a couple days but yesterday started to develop fever and worsening shortness of breath. Patient states that she has been able to ambulate at home without any concerns and that she has not been bedbound; moreover, she denies any sick contacts. She was discharged from the hospital after transitioning to oral antibiotics to Levaquin which appears to be resistant on further examination of the blood cultures ordered from prior admission. She denies having concerning symptoms such as chest pain, palpitations, dizziness, diarrhea, nausea, melena, hematochezia or hematemesis. On examination please refer to the physical exam noted above; patient presented normotensive 114/63, heart rate 126, respiratory rate 20, afebrile satting 95 on room air. On laboratory workup, patient has leukocytosis WBC 18 with a left shift 92% neutrophil, hemoglobin of 10.4 normocytic anemia likely anemia of chronic disease secondary to possible malignancy, CMP is largely unremarkable, lactic acid was initially 2.6 has improved to 1.6 since IV fluid resuscitation. Chest x-ray obtained Pneumonia at the right base with a small right pleural effusion. Differentials for the patient's fever and shortness of breath include: Incompletely treated E. coli bacteremia, pneumonia, febrile illness due to possible malignancy (renal mass) #Pneumonia with small right pleural effusion #Community-acquired pneumonia #E. coli bacteremia As noted above, patient was not adequately treated with antibiotics based on sensitivity noted in EMR On examination patient does not have any discerning findings Patient is low on the differential as she is not bedbound, ambulating without any concerns he is currently on room air saturating 95+ does not seem to be in any respiratory distress Plan: Will discharge the patient with the following strict instructions Please take doxycycline 100 mg by mouth twice a day and moxifloxacin 400 mg by mouth once a day for 10 days Follow-up with your primary care provider within the next 5 days If your symptoms worsen or if you develop worsening chest pain, shortness of breath or fever/chills please come back to the ED immediately. Patient seen and assessed with attending Dr. Scott Giron, DO PGY-2 Internal Medicine - GME Medication Administration(s) Medication Administration History Discontinued Medications Sodium Chloride (Ns) 1,000 mls @ 999 mls/hr IV .Q1H1M ONE Stop: 10/12/25 21:08 Last Admin: 10/12/25 21:19 Dose: 999 mls/hr Documented By: EB Ceftriaxone Sodium 2 gm/ (Sodium Chloride) 50 mls @ 100 mls/hr IV X1 ONE Stop: 10/12/25 20:38 Last Admin: 10/12/25 21:03 Dose: 100 mls/hr Documented By: EB Sodium Chloride (Ns) 1,000 mls @ 999 mls/hr IV .Q1H1M ONE Stop: 10/12/25 21:12 Lactated Ringer's (Lactated Ringers) 1,000 mls @ 999 mls/hr IV .Q1H1M ONE Stop: 10/13/25 00:34
[2025-10-13 00:22] LABS: Reflex Lactate? Y
[2025-10-13 01:04] LABS: Lactic Acid, 3 HR 1.6 mMol/L (0.4-2.0)
[2025-10-13 02:01] VITALS: BP 112/71; PULSE 85; RESP 18; TEMP 37.2; O2SAT 96
== END 2025-10-13 02:03 | disposition home or self-care (01) ==
LOC: SERX 10-13 00:55
PROVIDERS: Physician Assistant; Emergency Provider Emergency Medicine; PCP Family Medicine
DX: J15.5 Pneumonia due to Escherichia coli (principal); J91.8 Pleural effusion in other conditions classified elsewhere; R00.0 Tachycardia, unspecified; I45.10 Unspecified right bundle-branch block
CPT/HCPCS: 36415; 71045; 80053; 81001; 83605; 84145; 85025; 87040; 93005; 96365; 99284; J0696; J7030; J7050